=== PATIENT | female | born 1965 | race Two or more races ===

== ENCOUNTER 2024-11-17 20:05 | Observation (INO) | payer MEDICAID, SELFPAY ==
--- NOTE | 2024-11-14 06:16 | EKG_ITS ---
[facility] Test Date: 2024-11-14 Pat Name: LAWANDA GABRIEL Department: Room: - Gender: Female Orchid Hand: MADHU : 1965 Requested By: Jayson Torres Order Number: [id number] Reading MD: Jayson Torres Measurements Intervals Pansey Rate: 57 P: 7 GA: 129 QRS: -25 QRSD: 89 T: -15 QT: 359 QTc: 351 Interpretive Statements SINUS BRADYCARDIA LOW QRS VOLTAGE IN PRECORDIAL LEADS [QRS DEFLECTION < 1.0 mV IN CHEST LEADS] POSSIBLE ANTERIOR MYOCARDIAL INFARCTION , OF INDETERMINATE AGE [30 ms Q WAVE IN V3/V4, OR R < 0.2 mV IN V4] No previous ECG available for comparison /store/S0/[id number].pdf
[2024-11-14 08:29] VITALS: BMI 29.2
[2024-11-14 09:04] LABS: Collection Type, Urine Clean Catch
[2024-11-14 09:51] LABS: Basophils # (Auto) 0.1 Thou/mm3 (0.0-0.2); Basophils % (Auto) 1 % (0-2.5); Eosinophils # (Auto) 0.1 Thou/mm3 (0.0-0.5); Eosinophils % (Auto) 1 % (0-10); Hematocrit 43.5 % (36.0-46.0); Hemoglobin 15.2 g/dL (12.0-16.0); Immature Granulocytes % (Auto) 0 % (0-0); Immature Granulocytes Auto 0.02 Thou/mm3 (0.00-0.00); Lymphocytes # (Auto) 1.9 Thou/mm3 (1.0-4.8); Lymphocytes % (Auto) 24 % (10-50); Mean Corpuscular HGB Conc 34.9 g/dl (31.0-37.0); Mean Corpuscular Hemoglobin 33.2 pg (25.0-35.0); Mean Corpuscular Volume 95 fL (80-100); Monocytes # (Auto) 0.5 Thou/mm3 (0.0-0.8); Monocytes % (Auto) 7 % (0-12); Neutrophils # (Auto) 5.1 Thou/mm3 (1.8-7.7); Neutrophils % (Auto) 66 % (37-80); Nucleated Red Blood Cell % 0 /100 WBC (0); Platelet Count 142 Thou/mm3 (140-440); RDW Standard Deviation 47.5 fL (36.4-46.3); Red Blood Count 4.58 Miln/mm3 (4.00-5.20); White Blood Count 7.7 Thou/mm3 (3.6-11.0)
[2024-11-14 09:58] LABS: Bilirubin,Urine Negative (Negative); Blood,Urine Negative (Negative); Clarity,Urine Clear (Clear/Hazy); Color,Urine Lt-Yellow (Lt Yel-Yel); Glucose, Urine 4+ (Negative); Ketones,Urine Negative (Negative); Leukocyte Esterase,Urine Negative (Negative); Nitrite,Urine Negative (Negative); Protein,Urine Negative (Neg - Trace); RBC,Urine 2 /hpf (0-3); Specific Gravity,Urine 1.011 (1.001-1.035); Squamous Epithelial Cell,Urine 1 /hpf (0-5); Urobilinogen,Urine Negative mg/dL (0.0-1.0); WBC,Urine 2 /hpf (0-5)
[2024-11-14 09:59] LABS: Partial Thromboplastin Time 22.9 Seconds (22.0-36.0)
[2024-11-14 10:05] LABS: Alanine Aminotransferase 28 U/L (10-49); Albumin, Serum 4.7 gm/dL (3.5-5.0); Albumin/Globulin Ratio 2.1 (1.2-2.2); Alkaline Phosphatase 79 U/L (46-116); Anion Gap 9 (7-16); Aspartate Amino Transferase 24 U/L (0-34); BUN/Creatinine Ratio 17 Ratio (12-20); Blood Urea Nitrogen 12 mg/dL (9-23); Calcium 9.9 mg/dL (8.3-10.6); Calcium (Corrected) 9.9 mg/dL (8.5-10.1); Carbon Dioxide 30.2 mMol/L (20.0-31.0); Chloride 102 mMol/L (98-107); Creatinine (Component) 0.7 mg/dL (0.6-1.3); Estimated Creatinine Clearance 76.3 mL/min (>60); Globulin 2.2 gm/dL (2.3-3.5); Glucose 122 mg/dL (74-106); Osmolality,Calculated 281 (275-295); Potassium 3.9 mMol/L (3.4-5.1); Sodium 141 mMol/L (136-145); Total Protein 6.9 gm/dL (5.7-8.2); eGFR > 60 See Note
[2024-11-17] VITALS (18 sets, daily range): BP systolic 136–181; BP diastolic 65–102; PULSE 63–78; RESP 12–20; TEMP 36.1–37.1; O2SAT 95–100; BMI 29.5; BMI 30.5
--- NOTE | 2024-11-17 15:37 | PD.SUROPNT ---
Date of Procedure 11/17/24 Pre Op Diagnosis Incarcerated ventral hernia and umbilical hernia Post Op Diagnosis Same. Omental adhesions. Procedure Repair of 11.5 cm ventral incisional incarcerated hernia and umbilical hernia with implantation of a Ventrio ST oval 14.5 cm patch on 11/17/2024 Lysis of omental adhesions. Findings This patient had a previous abdominal surgery and had a large recurrent incarcerated ventral hernia. This was located in the suprapubic region. She also had an umbilical hernia that required repair. Both the defects were combined in repaired as a 1 defect. There were adhesions of the omentum on the inside and lysis of adhesions was carried out. Procedure Description The patient is interviewed in the preoperative area and the procedure was discussed in detail with the patient including expectation of outcomes. Explanation of the technique and complications. An informed consent was obtained. Anesthesia consent was obtained by the anesthesiologist. The hernia sites were marked on the surface. Patient is brought back to the operating room. The patient is positioned supine on the operating table and general anesthesia is administered in a satisfactory manner. The chest abdomen and thigh genitalia regions are prepped and draped in usual manner. IV antibiotics were given and a timeout procedure was carried out. Intraoperative ultrasound is carried out with 7.5 MHz linear digital ultrasound probe. The hernia defects were identified and marked on the surface to assess the extent of the procedure. Then the local anesthesia quarter percent Marcaine with epinephrine is used. Vertical incision is made through the previous incision. Dissection is carried out in the subcutaneous tissue to the fascia and the 2 different defects are identified. Gentle dissection is carried out and hernia sacs are isolated. The sac is opened and was removed as specimen. The incarcerated hernia was reduced by incising the ring. There were significantly dense adhesions of the omentum within the hernia sac and surrounding subcutaneous tissue. The contents are reduced. Hemostasis is achieved. There is an umbilical hernia and the midline incision is carried through the umbilical hernia. Both the hernia defects were converted into 1 defect. Dissection is carried out circumferentially from the peritoneal side to make sure there were no adhesions and bowel attached to the anterior abdominal wall. Lysis of adhesions is carried out on the peritoneal side releasing the omental adhesions circumferentially to about 10 cm around. All the hernias defects were incorporated into one defect. The defect is measured. It is about 11.5 cm in length and 6 cm in the width. The laps and instrument counts are obtained they are correct x2 and then I selected a Ventrio ST oval patch to be placed in the underlay position. The patch is oval and measures about 14.5 cm in maximum length. The patch is secured in the preperitoneal space and attached to the fascia in circumferential manner by interrupted O' Ethibond stitches. Laps and instrument counts were correct ?2. The defect in the fascia is closed over the patch. Patch was previously irrigated with gentamicin solution. Hemostasis is achieved. Operative field is thoroughly irrigated with saline solution and the subcutaneous tissues approximated with 3-0 chromic interrupted suture. The skin is approximated by 4-0 Monocryl subcuticular stitches. The Steri-Strips are applied. Sterile dressing and abdominal binder is applied. Patient tolerated the procedure very well complications none. Patient is transferred to recovery room in a satisfactory condition. Anesthesia GETA Drains None. Implants Ventrio ST oval patch measuring 14.5 cm in length. Pathology / specimen Other (Hernia sac) Estimated Blood Loss 10 Condition Stable Disposition PACU Surgeon Jayson Torres MD Surgical Staff Operation Date: 11/17/24 13:45 Case Staff Anesthesiologist: Silver Oconnell RN First Assistant: Shanel Wallers JODIE health plan specialist [employer] engineering technologist with student
--- NOTE | 2024-11-17 15:50 | SUR.PHASEI ---
pt received from OR in recovery bay 7. pt obtunded, breathing unlabored on oxymask 8l, oral airway in place. v/s stable. pt dressing to abd cdi, abd binder in place. report received from Dr. Oconnell and Kevin FELICIANO.
[2024-11-17] MEDS: fentaNYL CIT INJ 50 mCg/ML AMP 2ML 25 MCG IVP ×6 (16:06→17:30)
[2024-11-17] MEDS: HYDROmorphone INJ 2 MG/ML VIAL 0.3 MG IVP ×2 (16:50→17:07)
[2024-11-17] MEDS: MEPERIDINE INJ 50 MG/ML VIAL 25 MG IVP (17:12)
[2024-11-17] MEDS: RINGERS LACTATED 1000 ML 1,000 ML 60 ML IV (17:43)
[2024-11-17] MEDS: HYDROmorphone 1 MG/ML PCA SYRINGE 30ML PCA (17:51)
[2024-11-17] MEDS: KETOROLAC INJ 30 MG/ML VIAL IVP ×2 (18:18→23:17)
--- NOTE | 2024-11-17 19:50 | SUR.PHASEII ---
pt awake and alert, breathing unlabored on room air. v/s stable. pt dressing to abd cdi. abd binder place. report called to Daina RN. pt will be transferred to room at this time.
[2024-11-17] MEDS: ONDANSETRON INJ 2 MG/ML INJ 2 ML 4 MG IVP (21:19)
[2024-11-17] MEDS: ACETAMINOPHEN IVPB 1,000 MG/100 ML VIAL 250 MG IV (23:18)
[2024-11-18] VITALS (7 sets, daily range): BP systolic 118–147; BP diastolic 58–75; PULSE 62–70; RESP 13–20; TEMP 36.1–37.2; O2SAT 96–99
[2024-11-18] MEDS: ONDANSETRON INJ 2 MG/ML INJ 2 ML 4 MG IVP ×2 (04:54→11:42)
[2024-11-18] MEDS: KETOROLAC INJ 30 MG/ML VIAL IVP ×2 (06:32→11:44)
[2024-11-18] MEDS: ACETAMINOPHEN IVPB 1,000 MG/100 ML VIAL 250 MG IV ×2 (06:35→11:42)
[2024-11-18] MEDS: RINGERS LACTATED 1000 ML 1,000 ML 60 ML IV (09:31)
--- NOTE | 2024-11-18 13:58 | PD.SURPROG ---
Documentation for date of: 11/18/24 Subjective Subjective Brief History: Postop day 1 this patient was admitted yesterday for pain control after incarcerated hernia repair. She is doing much better today she has only minimal pain and she does not need IV narcotics she does have some nausea that is Zofran will take care of that at this time she is on Dilaudid that is giving her nausea. She will be discharged home to be followed in my office within 7 to 10 days Exam Vital Signs Temp Pulse Resp BP Pulse Ox O2 Del Method O2 Flow Rate 98.9 F 62 17 118/58 L 97 Nasal Cannula 1 11/18/24 12:00 11/18/24 12:00 11/18/24 12:00 11/18/24 12:00 11/18/24 12:11/18/24 12:11/18/24 12:00 Narrative Exam Abdomen is soft and nontender nondistended. Incision is dry and dressing is clean. Patient is wearing a abdominal binder. Cardiopulmonary examination is normal. Assessment & Plan Diagnosis (1) Incarcerated ventral hernia: Status: Acute (2) Umbilical hernia with obstruction: Status: Acute (3) Postoperative pain: Status: Acute Plan Discharge patient home. Procedures Procedure Date 11/17/24 Procedures Repair of 11.5 cm ventral incisional incarcerated hernia and umbilical hernia with implantation of a Ventrio ST oval 14.5 cm patch on 11/17/2024 Lysis of omental adhesions.
--- NOTE | 2024-11-18 14:01 | ESDS_ITS ---
Planned Discharge Date 11/18/24 DS: Providers Provider Date of admission: 11/17/24 20:05 Primary care physician: Lily Hawley PA-C Admitting Provider: Jayson Torres MD Attending Provider on Admission: Jayson Torres MD Attending Provider on DC: Jayson Torres MD Discharging Provider: Jayson Torres MD Diagnosis Discharge Diagnosis (1) Incarcerated ventral hernia: Status: Acute (2) Umbilical hernia with obstruction: Status: Acute (3) Postoperative pain: Status: Acute Problem List Completed Was Problem List Reviewed/Reconciled?: Yes Hospital Course This patient underwent repair of incarcerated ventral hernia and umbilical hernia postoperatively she was admitted for pain control as she could not be discharged home. On postop day 1 she is tolerating the pain better she was on IV narcotics that are not needed anymore she is being discharged home on oral pain medication and oral nausea medication if she has any. She will be followed up in the office within 7 days. Condition is markedly improved. Exam Vital Signs Temp Pulse Resp BP Pulse Ox O2 Del Method O2 Flow Rate 98.9 F 62 17 118/58 L 97 Nasal Cannula 1 11/18/24 12:00 11/18/24 12:00 11/18/24 12:00 11/18/24 12:00 11/18/24 12:11/18/24 12:00 11/18/24 12:00 Narrative Exam Abdomen is soft and nontender patient is wearing abdominal binder dressing is dry and intact cardiopulmonary examination is normal extremity unremarkable. Discharge Plan Plan Patient Disposition: HOME (Self Care) Disposition Comment: Follow-up in the office in 2 weeks Prescriptions/Referrals Prescriptions/Med Rec: New hydrocodone-acetaminophen 10-325 mg tablet 1 tab PO Q6H MDD 4 PRN (Reason: pain) Qty: 20 0RF ondansetron 8 mg tablet,disintegrating 8 mg PO Q8H PRN (Reason: nausea and vomiting) Qty: 20 0RF Continued dapagliflozin propanediol [Farxiga] 5 mg tablet 5 mg PO QAM hydrocodone-acetaminophen 5-325 mg tablet 1 tab PO Q4H PRN (Reason: pain) metformin 1,000 mg tablet 1,000 mg PO DAILY Patient Comments: TAKE 1 TABLET BY MOUTH ONCE DAILY Ozempic 2 mg/dose (8 mg/3 mL) pen injector 2 mg subcut QWEEK hydrochlorothiazide 12.5 mg capsule 12.5 mg PO DAILY Patient Comments: TAKE 1 CAPSULE BY MOUTH ONCE DAILY lisinopril 2.5 mg tablet 2.5 mg PO DAILY Patient Comments: TAKE 1 TABLET BY MOUTH ONCE DAILY insulin glargine [Basaglar KwikPen U-100 Insulin] 100 unit/mL (3 mL) insulin pen 40 unit subcut QPM atorvastatin 20 mg tablet 20 mg PO DAILY Referrals: Lily Hawley PA-C [Primary Care Provider] - Patient/Caregiver Discharge Instructions Other Discharge Activity Instructions:: Wear abdominal binder for 4 months. Keep incision dressing dry for 48 hours. May take shower after that but keep incision dry. Follow-up in the office in 2 weeks. Other Discharge Diet Instructions: Advance diet to regular diet as tolerated Education Materials: Anesthesia: General Anesthesia, Surgery Anesthesia After, Hernia Repair Open Dc, Having Hernia Surgery: Patch Repair, Preventing Surgical Site Infections, [facility] SDC Instructions- Faroese Print Language: Faroese Activity Restrictions/Additional Instructions: Wear abdominal binder for 4 months. Keep incision dressing dry for 48 hours. May take shower after that but keep incision dry. Follow-up in the office in 2 weeks. Advance diet to regular diet as tolerated Stand Alone Forms: [employer] Info., Patient Portal Info Letter Discharge Order Discharge Orders: Discharge (Routine); Ordered 11/18/24 Ordered By: Jayson Torres Procedures Procedure Date 11/17/24 Procedures Repair of 11.5 cm ventral incisional incarcerated hernia and umbilical hernia with implantation of a Ventrio ST oval 14.5 cm patch on 11/17/2024 Lysis of omental adhesions.
--- NOTE | 2024-11-18 14:38 | PC.SS ---
SS met with patient regarding her d/c plan. Pt is alert/oriented. Pt was admitted for Repair of Inc Her [id number]. Pt confirmed demographic and contact information is correct on facesheet. Pt resides with her daughters. Pt ambulates independently without assistance or DME. Pt is ok with all ADLs. Patient?s pharmacy [facility] choice is [facility] in [place]. Pt named her daughter, Domonique Aguilar medical decision maker if she is unable. Patient?s choice is to return home upon d/c. Pt states she is diabetic, has glucometer, and test strips. Pt states she uses insulin injections 1 X at night for her diabetes. Pt is currently on 1 liter of O2. Pt does not utilize O2 at home. D/C plan: Return home Next of Kin: Domonique Aguilar, daughter, phone# [phone] PCP: Lily Hawley from [facility] Address: Correct on facesheet
[2024-11-18] MEDS: DiphenhydrAMINE 25 MG CAPSULE PO (15:37)
== END 2024-11-18 16:21 | disposition home or self-care (01) ==
LOC: S2EX 20:19 → S3SX 20:28
PROVIDERS: Admitting Provider Specialist; PCP Physician Assistant; Referring Provider Specialist; Visit Provider Specialist
PROC: (CPT 49618; principal; 2024-11-17 13:30)
DX: K42.0 Umbilical hernia with obstruction, without gangrene (principal); K43.6 Other and unspecified ventral hernia with obstruction, without gangrene; G89.18 Other acute postprocedural pain; K66.0 Peritoneal adhesions (postprocedural) (postinfection); Z01.810 Encounter for preprocedural cardiovascular examination
CPT/HCPCS: 49618; 36415; 80053; 81001; 85025; 85730; 93005; 96361; 96365; 96375; 96376; A4217; A4649; C1781; G0378; J0131; J0690; J1100; J1171; J1580; J1885; J2175; J2250; J2405; J2704; J3010; J3490; J7030; J7120; A9270; J0665

== ENCOUNTER 2024-12-01 22:42 | Inpatient (IN) | payer MEDICAID, SELFPAY ==
[2024-12-01 22:44] VITALS: BMI 29.2
--- NOTE | 2024-12-01 22:55 | PD.EDABDPN ---
ED Abdominal Pain RME/HPI General Chief Complaint: Abdominal Pain Stated complaint: PAIN TO SURGICAL SITE, HERNIA SURGERY 2WKS AGO Time seen by provider: 12/01/24 23:29 Arrival date/time: 12/01/24 22:42 RME / HPI RME / HPI narrative: This section includes all my notes and documentations, including HPI, PE, and ED course. Evaristo Hoang MD HPI: 59yo female with history of DM, HTN, HLD, recent umbilical hernia repair [address] Torres here with worsening and severe abdominal pain and fever and vomiting today. No other complaints. ROS: All negative except as documented in HPI. Physical Exam: General: Alert and oriented. In severe pain. Fever noted. Eyes: Conjunctivae and lids clear. ENT: No nasal congestion. Neck: Supple. Heart: RRR. Lungs: No respiratory distress. Good air movement. No rhonchi, wheezing, rales. Abdomen: Severe diffuse tenderness, difficult to localize. Decreased bowel sounds. Incision appears clean and dry and intact. Skin: Warm and dry. Neuro: Alert and oriented X 3. I reviewed all diagnostic test results. My interpretation of the chest x-ray is NAD. My review of the CT abdomen pelvis report is postsurgical abscess. Blood and urine tests remarkable for WBC 16.4. At this point, diagnoses include postsurgical abscess with fever. Treatment here included Dilaudid, Tylenol, NS, Zosyn, Toradol, Solumedrol, and Zofran. Some improvement noted. I discussed the case with the patient's surgeon, Dr. Torres, and our hospitalist. About the presentation and exam and diagnostics and treatments here. And need of further care in the hospital. Will accept the patient. Evaristo Hoang MD Related Data Home Medications ?Medication ?Instructions ?Recorded ?Confirmed atorvastatin 20 mg tablet 20 mg PO DAILY 11/14/24 11/17/24 dapagliflozin propanediol 5 mg 5 mg PO QAM 11/14/24 11/17/24 tablet (Farxiga) hydrochlorothiazide 12.5 mg capsule 12.5 mg PO DAILY 11/14/24 11/17/24 insulin glargine 100 unit/mL (3 40 unit subcut QPM 11/14/24 11/17/24 mL) subcutaneous pen (Basaglar KwikPen U-100 Insulin) lisinopril 2.5 mg tablet 2.5 mg PO DAILY 11/14/24 11/17/24 metformin 1,000 mg tablet 1,000 mg PO DAILY 11/14/24 11/17/24 semaglutide 2 mg/dose (8 mg/3 mL) 2 mg subcut QWEEK 11/14/24 11/14/24 subcutaneous pen injector (Ozempic) Previous Rx's ?Medication ?Instructions ?Recorded hydrocodone 10 mg-acetaminophen 1 tab PO Q6H PRN pain #20 tabs 11/17/24 325 mg tablet ondansetron 8 mg disintegrating 8 mg PO Q8H PRN nausea and 11/18/24 tablet vomiting #20 tabs Allergies Allergy/AdvReac Type Severity Reaction Status Date / Time No Known Allergies Allergy Verified 12/01/24 22:44 Review of Systems Review of Systems Systems Reviewed: All systems reviewed, normal except as documented Past Medical History Past Medical History NEUROLOGIC: Negative Neurological Disorders or Seizures CARDIAC: Positive Cardiac Disorders, Hypercholesterolemia and Hypertension; Negative Congestive Heart Failure RESPIRATORY: Negative Chronic Obstructive Pulmonary Disease (COPD) GASTROINTESTINAL: Negative Gastrointestinal Disorders or Hepatitis GENITOURINARY: Positive Genitourinary Disorders and Kidney Stones; Negative Renal Disease REPRODUCTIVE: Positive Previous Pregnancies MUSCULOSKELETAL: Positive Musculoskeletal Disorders and Arthritis ENDOCRINE: Positive Endocrine Disorders and Diabetes Mellitus Type 2; Negative Diabetes Mellitus Type 1 HEMATOLOGIC: Negative Blood Disorders OTHER HISTORY: Positive Hospitalization (surgery), Shingles and Cancer; Negative Autoimmune Disease, Blood Transfusions, Blood Transfusion Reaction or Anesthesia Reactions Family History FAMILY HISTORY: Positive Family Cardiac Disorders and Family Surgery; Negative Family Psychiatric Problems, Family Respiratory Disorders, Family Gastrointestinal Problems, Family Cancer or Family Anesthesia Reaction Surgical History SURGICAL: Positive Nose Surgery (skin cancer removed), Abdominal Surgery, Hysterectomy and Section (x3) Social History SMOKING STATUS: Never smoker ED Exam Narrative Physical exam: As noted in HPI. Course Course Course Narrative: 2304: Sepsis alert initiated. Orders made at this time are congruent with ED Adult Sepsis Order List. Re-evaluation is to be completed. CXR is ordered for determining the etiology of fever 0017: NS IVF infused. 0047: Sepsis reassessment performed consisting of lab review, vitals, physical exam including auscultation of heart, lungs, and visual evaluation of capillary refills, mucosal membranes and extremities. Quality Measures Possible source: GI tract/intra-abdominal Blood cultures ordered: yes Antibiotic ordered: Yes Pertinent labs: 12/01/24 23:10 Lactic Acid 1.7 mMol/L (0.4-2.0) Procalcitonin 0.23 ng/ml (0.0-0.49) sepsis Orders Category Date Time Status COVID-19 Screening Questionnaire NOW Care 12/02/24 02:[address] Screening NOW Care 12/01/24 23:05 Active Decision to Admit X1 Care 12/02/24 02:15 Completed Saline [Insert IV] NOW Care 12/01/24 23:03 Active Consult to General Surgery Stat Cons 12/02/24 01:[address] abdomen pelvis w con Stat Exams 12/01/24 23:05 Taken XR chest 1V portable Stat Exams 12/01/24 23:05 Completed Amylase Stat Lab 12/01/24 23:10 Completed Bilirubin,Direct Stat Lab 12/01/24 23:10 Completed Blood Culture (Lab) Stat Lab 12/01/24 23:10 Received CBC Stat Lab 12/01/24 23:10 Completed CMP [Comprehensive Metabolic Panel] Stat Lab 12/01/24 23:10 Completed CRP [C-Reactive Protein] Stat Lab 12/01/24 23:10 Completed ESR [Sed Rate (ESR)] Stat Lab 12/01/24 23:10 Completed Lactate (Lactic Acid) Stat Lab 12/01/24 23:10 Completed Lipase Stat Lab 12/01/24 23:10 Completed Magnesium Stat Lab 12/01/24 23:10 Completed PT [Prothrombin Time with INR] Stat Lab 12/01/24 23:10 Completed PTT [Partial Thromboplastin Time] Stat Lab 12/01/24 23:10 Completed Procalcitonin Stat Lab 12/01/24 23:10 Completed UA, C/S IF [Urinalysis, C/S if Indicated] Stat Lab 12/02/24 00:58 Completed Acetaminophen Ivpb [Ofirmev Inj] Med 12/01/24 23:03 Discontinued 1,000 mg in 100 ml IV X1 HYDROmorphone INJ [Dilaudid Inj] Med 12/01/24 23:03 Discontinued 2 mg IVP X1 ONE Ketorolac Inj [Toradol Inj] Med 12/01/24 23:03 Discontinued 30 mg IVP X1 ONE MethylPREDNISolone.* [SoluMEDROL Inj] Med 12/01/24 23:12 Discontinued 125 mg IVP X1 ONE Ondansetron Inj [Zofran Inj] Med 12/01/24 23:03 Discontinued 4 mg IVP X1 ONE Piper/Tazo 3.375 gm Premix [Zosyn] Med 12/01/24 23:03 Discontinued 3.375 gm in 50 ml IV X1 Sodium Chloride 0.9% 1000 ml [Ns] 1,000 ml Med 12/01/24 23:03 Discontinued IV 999 mls/hr Sodium Chloride 0.9% 1000 ml [Ns] 1,000 ml Med 12/01/24 23:05 Discontinued IV 999 mls/hr Vital Signs Vital signs: Vital Signs Temperature 101.1 F H 12/01/24 22:56 Pulse Rate 91 12/01/24 22:56 Respiratory Rate 16 12/01/24 22:56 Blood Pressure 111/71 12/01/24 22:56 Pulse Oximetry (%) 96 12/01/24 22:56 Oxygen Delivery Method Room Air 12/01/24 22:56 Abdominal Pain MDM MDM Narrative MDM Narrative:: 59yo female with history of DM, HTN, HLD, recent umbilical hernia repair [address] Torres here with worsening and severe abdominal pain and fever and vomiting today. No other complaints. Patient data External records reviewed:: [facility] previous records (Per chart review, patient has no previous ED visits.) Clinical information provided by:: patient Social determinants that could affect healthcare access:: none Patient has the following chronic illnesses:: DM, HTN, HLD How is presenting disease/condition affected by chronic disease/condition?: uneffected by Evaluation data The following diagnostics were reviewed and interpreted by me:: lab results and radiology exam(s) Lab and/or radiology exams considered but not ordered:: none Interpretation Summary: I reviewed all diagnostic test results. My interpretation of the chest x-ray is NAD. My review of the CT abdomen pelvis report is postsurgical abscess. Blood and urine tests remarkable for WBC 16.4. Medications / Prescriptions Medications or Prescriptions considered but not ordered:: none Medication administrations:: Medication Administration History Discontinued Medications Hydromorphone HCl (Hydromorphone Inj 2 Mg/Ml Vial) 2 mg IVP X1 ONE Stop: 12/01/24 23:04 Last Admin: 12/01/24 23:29 Dose: 2 mg Documented By: DT Acetaminophen (Ofirmev Inj) 1,000 mg in 100 mls @ 250 mls/hr IV X1 ONE Stop: 12/01/24 23:26 Last Infusion: 12/01/24 23:51 Dose: Infused Documented By: Admin: 12/01/24 23:27 Dose: 250 mls/hr Documented By: DT Sodium Chloride (Ns) 1,000 mls @ 999 mls/hr IV .Q1H1M ONE Stop: 12/02/24 00:03 Last Infusion: 12/02/24 00:17 Dose: Infused Documented By: Admin: 12/01/24 23:16 Dose: 999 mls/hr Documented By: DT Piperacillin/Tazobactam/Dextrose (Zosyn) 3.375 gm in 50 mls @ 100 mls/hr IV X1 ONE Stop: 12/01/24 23:32 Last Infusion: 12/01/24 23:59 Dose: Infused Documented By: Admin: 12/01/24 23:29 Dose: 100 mls/hr Documented By: DT Sodium Chloride (Ns) 1,000 mls @ 999 mls/hr IV .Q1H1M ONE Stop: 12/02/24 00:05 Last Infusion: 12/02/24 00:18 Dose: Infused Documented By: Admin: 12/01/24 23:17 Dose: 999 mls/hr Documented By: DT Ketorolac Tromethamine (Ketorolac Inj 30 Mg/Ml Vial) 30 mg IVP X1 ONE Stop: 12/01/24 23:04 Last Admin: 12/01/24 23:25 Dose: 30 mg Documented By: DT Methylprednisolone Sodium Succinate (Methylprednisolone Sod Succ 62.5 Mg/Ml 2ml Vial) 125 mg IVP X1 ONE Stop: 12/01/24 23:13 Last Admin: 12/01/24 23:25 Dose: 125 mg Documented By: DT Ondansetron HCl (Ondansetron Inj 2 Mg/Ml Inj 2 Ml) 4 mg IVP X1 ONE; Protocol Stop: 12/01/24 23:04 Last Admin: 12/01/24 23:24 Dose: 4 mg Documented By: DT Dilaudid, Tylenol, NS, Zosyn, Toradol, Solumedrol, Zofran Consultations Consultation(s) initiated? (list below): Yes Consultation #1 (Physician, Specialty, Details): I discussed the case with the patient's surgeon, Dr. Torres, and our hospitalist. About the presentation and exam and diagnostics and treatments here. And need of further care in the hospital. Will accept the patient. Diagnosis Differential diagnosis abdominal pain: acute appendicitis, calculus of kidney, diverticulitis, endometriosis, gastroenteritis, pancreatitis, small bowel obstruction and other (Postsurgical abscess) Most likely diagnosis given after review of the tests above:: Postsurgical abscess with fever Admission Indicated Admission indicated?: indicated Explain why admission is indicated or not indicated:: Postsurgical abscess with fever Admission Request Was there a request for admission?: Yes Admission Attestation Admission request attestation: Discussed case with hospitalist service regarding admission. Discussed patients ED course, exam findings, labs, and radiology results. The Hospitalist [agrees] to accept the patient for admission. Disposition Plan Disposition Plan: Admit Discharge Plan Plan Patient Disposition: Admit Acute Care w/in Hospital Prescriptions/Referrals Prescriptions/Med Rec: No Action dapagliflozin propanediol [Farxiga] 5 mg tablet 5 mg PO QAM metformin 1,000 mg tablet 1,000 mg PO DAILY Patient Comments: TAKE 1 TABLET BY MOUTH ONCE DAILY Ozempic 2 mg/dose (8 mg/3 mL) pen injector 2 mg subcut QWEEK hydrochlorothiazide 12.5 mg capsule 12.5 mg PO DAILY Patient Comments: TAKE 1 CAPSULE BY MOUTH ONCE DAILY lisinopril 2.5 mg tablet 2.5 mg PO DAILY Patient Comments: TAKE 1 TABLET BY MOUTH ONCE DAILY insulin glargine [Basaglar KwikPen U-100 Insulin] 100 unit/mL (3 mL) insulin pen 40 unit subcut QPM atorvastatin 20 mg tablet 20 mg PO DAILY hydrocodone-acetaminophen 10-325 mg tablet 1 tab PO Q6H MDD 4 PRN (Reason: pain) Qty: 20 0RF ondansetron 8 mg tablet,disintegrating 8 mg PO Q8H PRN (Reason: nausea and vomiting) Qty: 20 0RF Referrals: No Primary/Family,Physician [Primary Care Provider] - In 1 week Problem List Clinical Impression: Postoperative abscess Patient/Caregiver Discharge Instructions Print Language: Hebrew Stand Alone Forms: [employer] Info., Patient Portal Info Letter
[2024-12-01 22:56] VITALS: BP 111/71; PULSE 91; RESP 16; TEMP 38.4; O2SAT 96
--- NOTE | 2024-12-01 23:05 | XR_ITS ---
Examination: AP chest single view TECHNIQUE: AP portable semiupright chest single view Date and time: December 01, 2024 11:20 PM INDICATIONS: Status post hernia surgery 2 weeks ago with shortness of breath today FINDINGS: Normal heart size No lobar pneumonia No pulmonary edema Mild osteopenia IMPRESSION: No pneumonia or pulmonary edema
--- NOTE | 2024-12-01 23:05 | XR_ITS ---
Examination: CT abdomen with intravenous contrast CT pelvis with intravenous contrast 2-D coronal reconstructions 2-D sagittal reconstructions Date and time of exam:December 02, 2024 at 12:18 AM INDICATIONS: Hernia surgery 2 weeks ago with pain at the surgical site. CTDI: vol (mGy) 7.32 DLP: (mGycm) 396 Technique: Multiple axial sections of the abdomen and pelvis have been obtained. 64 slice high-resolution scanner used. 3 mm axial sections have been obtained, post intravenous injection of 60 cc Isovue 370 2-D sagittal, coronal reconstructions obtained. Low dose protocols were performed. One or more of the following dose reduction techniques were used; automated exposure control, adjustment of the mA and/or KV according to patient size, use of iterative reconstruction technique. Findings: 13 mm pulmonary nodule right lower lobe image 18 No focal liver or splenic lesion Absent gallbladder, common bile duct 12 mm No pancreatic or adrenal mass No hydronephrosis or renal calculi Aorta normal size Postoperative fluid poorly defined in the anterior abdomen, axial image 1:30 12/09/1935 that measures 6 cm in transverse dimension and 13 mm in thickness Also minimal fluid collection external to the anterior lower abdominal wall image 141 measuring 17 x 23 mm Mild to moderate free fluid in the pelvis Urinary bladder intact Impression : Poorly defined fluid collection in the lower anterior abdomen which may be postop Minimal fluid collection external to the lower anterior abdominal wall as above. Mild to moderate free fluid in the pelvis Common bile duct 12 mm, clinical correlation advised
[2024-12-01] MEDS: SODIUM CHLORIDE 0.9% 1000 ML 1,000 ML 999 ML IV ×2 (23:16→23:17)
[2024-12-01 23:21] LABS: Lactate (Lactic Acid) 1.7 mMol/L (0.4-2.0)
[2024-12-01] MEDS: ONDANSETRON INJ 2 MG/ML INJ 2 ML 4 MG IVP (23:24)
[2024-12-01 23:25] VITALS: TEMP 38.4
[2024-12-01 23:25] LABS: Basophils # (Auto) 0.1 Thou/mm3 (0.0-0.2); Basophils % (Auto) 1 % (0-2.5); Eosinophils # (Auto) 0.4 Thou/mm3 (0.0-0.5); Eosinophils % (Auto) 2 % (0-10); Hematocrit 44.3 % (36.0-46.0); Immature Granulocytes % (Auto) 0 % (0-0); Immature Granulocytes Auto 0.05 Thou/mm3 (0.00-0.00); Lymphocytes # (Auto) 2.3 Thou/mm3 (1.0-4.8); Lymphocytes % (Auto) 14 % (10-50); Mean Corpuscular HGB Conc 36.1 g/dl (31.0-37.0); Mean Corpuscular Hemoglobin 32.9 pg (25.0-35.0); Mean Corpuscular Volume 91 fL (80-100); Monocytes # (Auto) 0.9 Thou/mm3 (0.0-0.8); Monocytes % (Auto) 6 % (0-12); Neutrophils # (Auto) 12.7 Thou/mm3 (1.8-7.7); Neutrophils % (Auto) 77 % (37-80); Nucleated Red Blood Cell % 0 /100 WBC (0); Platelet Count 165 Thou/mm3 (140-440); RDW Standard Deviation 41.1 fL (36.4-46.3); Red Blood Count 4.86 Miln/mm3 (4.00-5.20); White Blood Count 16.4 Thou/mm3 (3.6-11.0)
[2024-12-01] MEDS: KETOROLAC INJ 30 MG/ML VIAL IVP (23:25)
[2024-12-01] MEDS: MethylPREDNISolone SOD SUCC 62.5 MG/ML 2ML VIAL 125 MG IVP (23:25)
[2024-12-01] MEDS: ACETAMINOPHEN IVPB 1,000 MG/100 ML VIAL 250 MG IV (23:27)
[2024-12-01] MEDS: PIPER/TAZO 3.375 GM PREMIX 3.375 GM/50 ML BAG IV (23:29)
[2024-12-01] MEDS: HYDROmorphone INJ 2 MG/ML VIAL IVP (23:29)
[2024-12-01 23:36] VITALS: BP 156/76; PULSE 85; RESP 14; O2SAT 99
[2024-12-01 23:43] LABS: Partial Thromboplastin Time 22.6 Seconds (22.0-36.0); Prothrombin Time 10.9 Seconds (9.0-12.2)
[2024-12-01 23:54] LABS: Alanine Aminotransferase 26 U/L (10-49); Albumin, Serum 4.6 gm/dL (3.5-5.0); Alkaline Phosphatase 92 U/L (46-116); Amylase 83 U/L (30-118); Anion Gap 8 (7-16); Aspartate Amino Transferase 19 U/L (0-34); BUN/Creatinine Ratio 24 Ratio (12-20); Bilirubin,Direct 0.3 mg/dL (0.0-0.3); Blood Urea Nitrogen 17 mg/dL (9-23); C-Reactive Protein 0.9 mg/dL (0.0-0.9); Calcium 9.5 mg/dL (8.3-10.6); Calcium (Corrected) 9.5 mg/dL (8.5-10.1); Carbon Dioxide 25.8 mMol/L (20.0-31.0); Chloride 102 mMol/L (98-107); Creatinine (Component) 0.7 mg/dL (0.6-1.3); Estimated Creatinine Clearance 73.1 mL/min (>60); Globulin 2.3 gm/dL (2.3-3.5); Glucose 210 mg/dL (74-106); Lipase 53 U/L (12-53); Magnesium 1.6 mg/dL (1.6-2.6); Osmolality,Calculated 279 (275-295); Potassium 3.9 mMol/L (3.4-5.1); Procalcitonin 0.23 ng/ml (0.0-0.49); Sodium 136 mMol/L (136-145); Total Protein 6.9 gm/dL (5.7-8.2); eGFR > 60 See Note
[2024-12-02] VITALS (10 sets, daily range): BP systolic 114–156; BP diastolic 55–85; PULSE 63–79; RESP 14–97; TEMP 36.2–37; O2SAT 93–99; BMI 30.3
[2024-12-02 00:25] LABS: Sed Rate (ESR) 21 mm/hr (0-30)
[2024-12-02 01:10] LABS: Collection Type, Urine Clean Catch
[2024-12-02 01:19] LABS: Bilirubin,Urine Negative (Negative); Blood,Urine Negative (Negative); Clarity,Urine Clear (Clear/Hazy); Color,Urine Colorless (Lt Yel-Yel); Culture Indicated,Urine Not Indicated; Glucose, Urine 4+ (Negative); Ketones,Urine Trace (Negative); Leukocyte Esterase,Urine Negative (Negative); Nitrite,Urine Negative (Negative); Protein,Urine Negative (Neg - Trace); RBC,Urine 2 /hpf (0-3); Specific Gravity,Urine 1.041 (1.001-1.035); Squamous Epithelial Cell,Urine < 1 /hpf (0-5); Urobilinogen,Urine Negative mg/dL (0.0-1.0); WBC,Urine 2 /hpf (0-5)
--- NOTE | 2024-12-02 02:18 | PRELIM_ITS ---
CT scan of the abdomen and pelvis with intravenous contrast (axial sections with sagittal and coronal reformats) December 02, 2024 at 0015 hours Clinical History: Abdominal pain after surgery and fever. Comparison: None. Findings: Right lower lobe lung nodule measuring 1.4 cm. Status post cholecystectomy. There is mild intra and extrahepatic biliary ductal dilatation. The liver, pancreas, spleen, kidneys and adrenals are unremarkable. Diverticulosis of the colon. No evidence of bowel obstruction. The appendix is within normal limits. There is no mesenteric or retroperitoneal adenopathy. The urinary bladder is unremarkable. There is no free air. A small amount of complex free fluid is seen in the pelvis. There is questionable developing collection in the anterior abdomen (axial image 138 of 257), no completely walled with yet measuring 6.7 x 1.4 cm. The osseous structures are unremarkable. Impression: 1. Probable developing collection in the anterior abdomen. Surgical consult should be considered. 2. Small amount of complex free fluid in the pelvis, consider peritonitis in the differential diagnosis. 3. Mild intra and extrahepatic biliary ductal dilatation in status postcholecystectomy, possibly functional. If choledocholithiasis is clinically suspected, consider correlation with MRCP. 4. Right lower lobe lung nodule, further evaluation for characterization is recommended. Differential diagnosis includes metastasis and primary lung cancer. Discussion Details: Results verbally communicated to : Dr. Hoang at 01:41 AM 12/02/2024 Report Electronically Signed By: Go Kumar 12/02/2024 2:18:18 AM [EST]
--- NOTE | 2024-12-02 03:04 | ESHP_ITS ---
<Statement entered by Neil Reid MD - 12/02/24 06:23> I Neil Reid MD reviewed the note and agree with the resident's assessment & plan with exceptions as below. I have personally reviewed labs, imaging, home meds/prior records, examined the patient, formulated and discussed management plan with the IM team. A 59-year-old female with history of DM, HTN and recent hernia repair on 11/17/2024 presented to ED with abdominal pain at the incision site along with nausea and vomiting. On presentation noted to be febrile, have leukocytosis and CT abdomen/pelvis did reveal surgical site abscess. Admitted for surgical site abscess, consult general surgery for wound evaluation and intervention as appropriate. Meanwhile empirically treat with Zosyn and vancomycin, continue IV fluid resuscitation, keep n.p.o. until surgical evaluation. Documentation for date of: 12/02/24 HPI History of Present Illness Chief complaint: abdominal pain History of present illness: 59-year-old female with past medical history hypertension, hyperlipidemia, and DM2 was admitted to the hospital 12/02/2024 after coming to the ED with complaints of abdominal pain at surgical incision site. Patient recently had a ventral incarcerated hernia and umbilical hernia repair on 11/17/2024 and was discharged on 11/18/2024. Patient states that since surgery she has been having abdominal pain and she went to see her surgeon who stated that her abdominal pain was likely due to the surgery. She also mentioned that last week she started having fevers on and off with increased abdominal pain as well. She did not notice any discharge coming from the surgical incision site and has been compliant with follow-up visits with her surgeon. She states that today her abdominal pain became too unbearable therefore she decided to come to the ED. She also stated that she has been having some visual hallucinations which started on the day prior to admission. She also stated she has been having some nausea and vomiting, but otherwise does not have any other symptoms including chest pain, shortness of breath, dizziness, changes in bowel movement, or dysuria. ED course: Initially came in febrile and normotensive. Initial labs were relevant for leukocytosis, and lactic acid and inflammatory markers were normal. Initial imaging included chest x-ray which did not show any active disease at this time and abdomen/pelvis CT with showed on preliminary report collection in the anterior abdomen as well as small amount of complex free fluid in the pelvis and right lower lung nodule. ED physician discussed the case with surgery who stated to admit the patient for further workup. PMH: As above Surgical Hx: Cholecystectomy, hysterectomy, C-sections, incarcerated ventral hernia and umbilical hernia repair Allergies: NKDA Social Hx: Denies any smoking, alcohol, drugs Medications: Metformin, lisinopril, atorvastatin Review of Systems Review of Systems Systems Reviewed: All systems reviewed, normal except as documented Past Medical History Past Medical History NEUROLOGIC: Negative Neurological Disorders or Seizures CARDIAC: Positive Cardiac Disorders, Hypercholesterolemia and Hypertension; Negative Congestive Heart Failure RESPIRATORY: Negative Chronic Obstructive Pulmonary Disease (COPD) GASTROINTESTINAL: Negative Gastrointestinal Disorders or Hepatitis GENITOURINARY: Positive Genitourinary Disorders and Kidney Stones; Negative Renal Disease REPRODUCTIVE: Positive Previous Pregnancies MUSCULOSKELETAL: Positive Musculoskeletal Disorders and Arthritis ENDOCRINE: Positive Endocrine Disorders and Diabetes Mellitus Type 2; Negative Diabetes Mellitus Type 1 HEMATOLOGIC: Negative Blood Disorders OTHER HISTORY: Positive Hospitalization (surgery), Shingles and Cancer; Negative Autoimmune Disease, Blood Transfusions, Blood Transfusion Reaction or Anesthesia Reactions Family History FAMILY HISTORY: Positive Family Cardiac Disorders and Family Surgery; Negative Family Psychiatric Problems, Family Respiratory Disorders, Family Gastrointestinal Problems, Family Cancer or Family Anesthesia Reaction Surgical History SURGICAL: Positive Nose Surgery (skin cancer removed), Abdominal Surgery, Hysterectomy and Section (x3) Social History SMOKING STATUS: Never smoker Exam Vital Signs Temp Pulse Resp BP Pulse Ox O2 Del Method 101.1 F H 85 14 156/76 H 99 Room Air 12/01/24 23:25 12/01/24 23:36 12/01/24 23:36 12/01/24 23:36 12/01/24 23:36 12/01/24 23:36 Narrative Exam General: A/O x3, mild distress likely 2/2 pain Eyes: PERRL, EOMI. Anicteric, vision grossly intact. Ears: No ear pain, no ear discharge, Hearing grossly intact. Nose: No nasal discharge. Mouth/Throat: Moist mucous membranes, no redness, no lesions. Neck: Neck supple, non-tender, no cervical lymphadenopathy. Lungs: Clear RACIEL to auscultation and percussion, No accessory muscle use. Cardio: Normal S1/S2, regular rhythm, no murmurs, no JVD or carotid bruits. Abdomen: Soft, generalized tenderness worst around incisional site, no palpable masses, peristalsis present, no guarding or rebound, no discharge from incisional site, but foul odor. Abdominal binder in place. Extremities: Symmetrical, no significant deformities, no peripheral edema , non-tender, peripheral pulses presents. Skin: No rashes, no lesions, warm to touch. Neuro: No focal neurological deficits. motor and sensory intact Psych: Cooperative, appropriate mood and effect. Results: Labs 12/01/24 23:10 12/01/24 23:10 Labs: Short CBC 12/01/24 Range/Units 23:10 WBC 16.4 H (3.6-11.0) Thou/mm3 Hgb 16.0 (12.0-16.0) g/dL Hct 44.3 (36.0-46.0) % Plt Count 165 (140-440) Thou/mm3 BMP 12/01/24 23:10 Sodium 136 Potassium 3.9 Chloride 102 Carbon Dioxide 25.8 BUN 17 Creatinine 0.7 Glucose 210 H Calcium 9.5 Liver Function 12/01/24 Range/Units 23:10 Total Bilirubin 1.0 (0.3-1.2) mg/dL Direct Bilirubin 0.3 (0.0-0.3) mg/dL AST 19 (0-34) U/L ALT 26 (10-49) U/L Alkaline Phosphatase 92 (46-116) U/L Albumin 4.6 (3.5-5.0) gm/dL Urine 12/02/24 Range/Units 00:58 Urine Color Colorless A (Lt Yel-Yel) Urine Clarity Clear (Clear/Hazy) Urine pH 6.0 (5.0-7.0) Ur Specific [place] 1.041 H (1.001-1.035) Urine Protein Negative (Neg - Trace) Urine Glucose (UA) 4+ A (Negative) Quality Measures Quality Measures sepsis Current suspected stage: ruled out Possible source: GI tract/intra- abdominal Blood cultures ordered: yes Antibiotic ordered: Yes Medications Home Medications and Allergies Home Medications ?Medication ?Instructions ?Recorded ?Confirmed ?Type atorvastatin 20 mg tablet 20 mg PO DAILY 11/14/2403/05 History dapagliflozin propanediol 5 mg 5 mg PO QAM 11/14/24 History tablet (Farxiga) hydrochlorothiazide 12.5 mg capsule 12.5 mg PO DAILY 0 11/14/24 11/17/24 History insulin glargine 100 unit/mL (3 40 unit subcut QPM 12/0311/17/24 History mL) subcutaneous pen (Basaglar KwikPen U-100 Insulin) lisinopril 2.5 mg tablet 2.5 mg PO DAILY 11/14/2403/05 History metformin 1,000 mg tablet 1,000 mg PO DAILY 11/14/24 0 11/17/24 History semaglutide 2 mg/dose (8 mg/3 mL) 2 mg subcut QWEEK 11/14/24 History subcutaneous pen injector (Ozempic) Allergies Allergy/AdvReac Type Severity Reaction Status Date / Time No Known Allergies Allergy Verified 12/01/24 22:44 Visit Medications Acetaminophen (Acetaminophen 325 Mg Tablet) 650 mg PO Q6H PRN PRN Reason: Fever >100.4 Stop: 01/01/25 02:58 Hydrocodone Bitart/Acetaminophen (Hydrocodone/Apap 5/325 Tablet) 1 tab PO Q4HR PRN PRN Reason: PAIN SCALE 4-6 (Moderate Stop: 12/07/24 02:58 Dextrose (Dextrose 50%-Water Inj 50 Ml Syringe) 25 ml IV Q15MIN PRN PRN Reason: BG 50-70 responsive npo pt Stop: 01/01/25 02:58 Dextrose (Dextrose 50%-Water Inj 50 Ml Syringe) 50 ml IV Q15MIN PRN PRN Reason: BG <50 OR BG <70 & pt unresponsive Stop: 01/01/25 02:58 Glucagon (Glucagon Inj 1 Mg Vial) 1 mg IM Q15MIN PRN PRN Reason: BG <70, and no IV access Hydromorphone HCl (Hydromorphone Inj 2 Mg/Ml Vial) 0.25 mg IVP Q4H PRN PRN Reason: BREAKTHROUGH PAIN Stop: 12/07/24 02:58 Sodium Chloride (Ns) 1,000 mls @ 75 mls/hr IV .[id number] [place] Stop: 12/02/24 16:19 Insulin Human Lispro (Insulin Lispro (Admelog) 1 Unit/0.01 Ml Unit) 0 unit SC Q6HR [place]; Protocol Stop: 01/01/25 05:59 Morphine Sulfate (Morphine Sulf Inj 10 Mg/Ml Vial) 1 mg IVP Q2H PRN PRN Reason: PAIN SCALE 7-10 (Severe Stop: 12/07/24 02:58 Ondansetron HCl (Ondansetron Inj 2 Mg/Ml Inj 2 Ml) 4 mg IVP Q6H PRN; Protocol PRN Reason: NAUSEA OR VOMITING Stop: 01/01/25 02:58 Discontinued Medications Hydromorphone HCl (Hydromorphone Inj 2 Mg/Ml Vial) 2 mg IVP X1 ONE Stop: 12/01/24 23:04 Last Admin: 12/01/24 23:29 Dose: 2 mg Acetaminophen (Ofirmev Inj) 1,000 mg in 100 mls @ 250 mls/hr IV X1 ONE Stop: 12/01/24 23:26 Last Infusion: 12/01/24 23:51 Dose: Infused Sodium Chloride (Ns) 1,000 mls @ 999 mls/hr IV .Q1H1M ONE Stop: 12/02/24 00:03 Last Infusion: 12/02/24 00:17 Dose: Infused Piperacillin/Tazobactam/Dextrose (Zosyn) 3.375 gm in 50 mls @ 100 mls/hr IV X1 ONE Stop: 12/01/24 23:32 Last Infusion: 12/01/24 23:59 Dose: Infused Sodium Chloride (Ns) 1,000 mls @ 999 mls/hr IV .Q1H1M ONE Stop: 12/02/24 00:05 Last Infusion: 12/02/24 00:18 Dose: Infused Ketorolac Tromethamine (Ketorolac Inj 30 Mg/Ml Vial) 30 mg IVP X1 ONE Stop: 12/01/24 23:04 Last Admin: 12/01/24 23:25 Dose: 30 mg Methylprednisolone Sodium Succinate (Methylprednisolone Sod Succ 62.5 Mg/Ml 2ml Vial) 125 mg IVP X1 ONE Stop: 12/01/24 23:13 Last Admin: 12/01/24 23:25 Dose: 125 mg Ondansetron HCl (Ondansetron Inj 2 Mg/Ml Inj 2 Ml) 4 mg IVP X1 ONE; Protocol Stop: 12/01/24 23:04 Last Admin: 12/01/24 23:24 Dose: 4 mg Assessment & Plan Plan 59-year-old female with past medical history hypertension, hyperlipidemia, and DM2 was admitted to the hospital 12/02/2024 for postsurgical abscess. #Postsurgical abscess #Peritonitis? # Leukocytosis #Hx of recent incarcerated parenteral hernia and umbilical hernia repair Patient came in with complaints of abdominal pain since she had surgery on 11/17/2024 which has been increasing and today became unbearable along with fevers. Abdomen/pelvis CT showed on preliminary report collection in the anterior abdomen as well as small amount of complex free fluid in the pelvis and right lower lung nodule. Inflammatory markers and lactic acids are negative Plan: IV fluids IV Zosyn and Vancomycin Repeat lactic acid for morning labs Pain medications including [place], morphine, and Dilaudid for breakthrough pain. N.p.o. for now in the setting of possible surgical intervention General surgery consulted, appreciate recommendations Chronic diseases: #Hx of DM2 #Hx of hypertension #Hx hyperlipidemia ISS and hypoglycemia protocol ordered A1c ordered Lipid panel ordered for a.m. labs Pending medication reconciliation to start home medications. Disposition: Patient admitted to med surg for post surgical abscess. Diet: NPO GI prophylaxis: not indicated DVT prophylaxis: SCDs in setting of possible surgery Code: Full Case disclosed with Attending Dr. Franklin Green PGY1 Disclaimer: Even though this this note was dictated by speech recognition and even though it was carefully revised there may still be minor errors in personalized living manager due to voice recognition software.
[2024-12-02] MEDS: ONDANSETRON INJ 2 MG/ML INJ 2 ML 4 MG IVP (03:16)
[2024-12-02] MEDS: MORPHINE SULF INJ 10 MG/ML VIAL IVP (03:16)
[2024-12-02] MEDS: SODIUM CHLORIDE 0.9% 1000 ML 1,000 ML 75 ML IV (03:17)
[2024-12-02] MEDS: VANCOMYCIN/NS 1 GM IVPB 200 ML IV (03:35)
--- NOTE | 2024-12-02 04:21 | PC.NURSE ---
JODIE Galindo recieved telephone report from JODIE Rodriguez in ED.
[2024-12-02 04:34] LABS: Basophils # (Auto) 0.1 Thou/mm3 (0.0-0.2); Basophils % (Auto) 0 % (0-2.5); Eosinophils % (Auto) 0 % (0-10); Hematocrit 40.6 % (36.0-46.0); Hemoglobin 14.2 g/dL (12.0-16.0); Immature Granulocytes % (Auto) 1 % (0-0); Immature Granulocytes Auto 0.09 Thou/mm3 (0.00-0.00); Lymphocytes # (Auto) 0.8 Thou/mm3 (1.0-4.8); Lymphocytes % (Auto) 5 % (10-50); Mean Corpuscular Hemoglobin 32.9 pg (25.0-35.0); Mean Corpuscular Volume 94 fL (80-100); Monocytes # (Auto) 0.5 Thou/mm3 (0.0-0.8); Monocytes % (Auto) 3 % (0-12); Neutrophils # (Auto) 14.5 Thou/mm3 (1.8-7.7); Neutrophils % (Auto) 91 % (37-80); Nucleated Red Blood Cell % 0 /100 WBC (0); Platelet Count 132 Thou/mm3 (140-440); RDW Standard Deviation 41.7 fL (36.4-46.3); Red Blood Count 4.31 Miln/mm3 (4.00-5.20); White Blood Count 15.9 Thou/mm3 (3.6-11.0)
[2024-12-02 04:47] LABS: Glucose Estimated Average 137 mg/dL (80-131); Hemoglobin A1C 6.4 % Hgb (4.8-6.0)
[2024-12-02 04:53] LABS: Alanine Aminotransferase 41 U/L (10-49); Albumin, Serum 3.9 gm/dL (3.5-5.0); Alkaline Phosphatase 75 U/L (46-116); Anion Gap 8 (7-16); Aspartate Amino Transferase 44 U/L (0-34); BUN/Creatinine Ratio 20 Ratio (12-20); Blood Urea Nitrogen 12 mg/dL (9-23); Calcium 8.3 mg/dL (8.3-10.6); Calcium (Corrected) 8.4 mg/dL (8.5-10.1); Carbon Dioxide 24.8 mMol/L (20.0-31.0); Cardiac Risk Estimate 2.7 RATIO (3.7-5.6); Chloride 106 mMol/L (98-107); Cholesterol 117 mg/dL (132-200); Creatinine (Component) 0.6 mg/dL (0.6-1.3); Estimated Creatinine Clearance 85.3 mL/min (>60); Glucose 222 mg/dL (74-106); HDL Cholesterol 43 mg/dL (40-60); LDL Cholesterol,Calculated 47 mg/dL (0-130); Magnesium 1.6 mg/dL (1.6-2.6); Osmolality,Calculated 284 (275-295); Sodium 139 mMol/L (136-145); Total Protein 5.9 gm/dL (5.7-8.2); Triglycerides 137 mg/dL (30-150); eGFR > 60 See Note
--- NOTE | 2024-12-02 05:02 | PC.NURSE ---
Patient will ask family member to bring medications to the hospital.
[2024-12-02] MEDS: PIPER/TAZO 3.375 GM PREMIX 3.375 GM/50 ML BAG IV ×3 (05:49→21:36)
[2024-12-02] MEDS: INSULIN LISPRO (AdmeLOG) 1 UNIT/0.01 ML UNIT SC ×4 (05:51→20:49)
[2024-12-02] MEDS: Magnesium Sulfate 4 GM Ivpb 4 GM/50 ML BAG IV (08:43)
[2024-12-02] MEDS: Lisinopril 2.5 MG TABLET PO (08:43)
[2024-12-02] MEDS: CALCIUM CARBONATE 600 MG TABLET PO (08:43)
--- NOTE | 2024-12-02 08:43 | PC.SS ---
Patient Zuleika Aguilar is a 59 Year old female admitted for Post Surgical Abscess. SS met with patient regarding her d/c plan. Patient appeared alert/oriented. Patient was able to confirm demographic and contact information. Patient reports she resides with her daughters. Pt ambulates independently without assistance or DME. Patient is able to complete all ADLs. Patient?s pharmacy of choice is [facility] in [place]. Pt named her daughter, Domonique Aguilar medical decision maker. Patient?s choice is to return home upon discharge. Patient's daughter will provide transportation. D/C plan: Return home Next of Kin: Domonique Aguilar, daughter, phone# [phone] PCP: Lily Hawley from [facility]
[2024-12-02] MEDS: hydroCHLOROthiazide 12.5 MG CAPSULE PO (08:44)
[2024-12-02] MEDS: INSULIN GLARGINE (Lantus) 5 UNIT/0.05 ML (PER 5 UNITS) 10 UNIT SC (08:46)
[2024-12-02] MEDS: VANCOMYCIN/NS 750 MG IVPB 750 MG/150 ML BAG 120 MG IV ×2 (10:38→21:43)
[2024-12-02] MEDS: HYDROcodone/APAP 5/325 TABLET 1 TAB PO (10:50)
--- NOTE | 2024-12-02 14:56 | ESPR_ITS ---
Documentation for date of: 12/02/24 Subjective Subjective Interval history: Patient examined at bedside. Still has abdominal pain at surgical site but improved since admission with medication. She has been able to have normal bowel movements since the surgery but difficult to strain. Endorses normal appetite. No fever since admission, leukocytosis 16, CMP unremarkable. Resumed 30 units glargine at bedtime for blood sugar control. Continue IV antibiotics for possible surgical site infection. Surgery will come and assess patient for any need of further intervention. Exam Vital Signs Temp Pulse Resp BP Pulse Ox O2 Del Method 97.6 F 66 17 117/55 L 94 L Room Air 12/02/24 12:00 12/02/24 12:00 12/02/24 12:00 12/02/24 12:12/02/24 12:12/02/24 12:00 Narrative Exam General: Middle age female, mild distress from pain, cooperative HEENT: NCAT, No JVD noted. Mucosa moist. Pupils are equal and reactive to light bilaterally Cardiovascular: Normal S1 and S2. Regular rate and rhythm. Respiratory: Lungs are clear to auscultation bilaterally. No wheezing or crackles heard. Abdomen: Soft, tender around surgery site, no drainage, not distended, normal bowel sounds. Had abdominal binder on. Skin: Warm to touch, dry, no rashes noted Musculoskeletal: No gross injuries. Able to move all 4 extremities. No pitting edema Neuro: Alert and oriented x3. No focal neuro deficits. Psych: Normal affect and mood Objective Labs 12/03/24 05:00 12/03/24 05:00 Labs: Laboratory Results - last 24 hr 12/01/24 12/02/24 12/02/24 23:10 00:58 04:15 WBC 16.4 H 15.9 H RBC 4.86 4.31 Hgb 16.0 14.2 Hct 44.3 40.6 MCV 91 94 MCH 32.9 32.9 MCHC 36.1 35.0 RDW Std Deviation 41.1 41.7 Plt Count 165 132 L D Neut % (Auto) 77 91 H Lymph % (Auto) 14 5 L [place] % (Auto) 6 3 Eos % (Auto) 2 0 Baso % (Auto) 1 0 Neut # (Auto) 12.7 H 14.5 H Lymph # (Auto) 2.3 0.8 L [place] # (Auto) 0.9 H 0.5 Eos # (Auto) 0.4 0.0 Baso # (Auto) 0.1 0.1 Immature Gran # (Auto) 0.05 H 0.09 H Absolute Nucleated RBC 0.00 0.00 Immature Gran % 0 1 H Nucleated RBC % 0 0 ESR 21 PT 10.9 INR 1.0 APTT 22.6 Sodium 136 139 Potassium 3.9 4.0 Chloride 102 106 Carbon Dioxide 25.8 24.8 Anion Gap 8 8 BUN 17 12 Creatinine 0.7 0.6 Estim Creat Clear Calc 73.1 85.3 eGFR > 60 > 60 BUN/Creatinine Ratio 24 H 20 Glucose [address] Glu mg/dL 137 H Hemoglobin A1c 6.4 H Calculated Osmolality 279 284 Lactic Acid 1.7 1.0 Calcium 9.5 8.3 Corrected Calcium 9.5 8.4 L Magnesium 1.6 1.6 Total Bilirubin 1.0 1.0 Direct Bilirubin 0.3 AST 19 44 H ALT 26 41 Alkaline Phosphatase 92 75 C-Reactive Prot, Quant 0.9 Total Protein 6.9 5.9 Albumin 4.6 3.9 D Globulin 2.3 2.0 L Albumin/Globulin Ratio 2.0 2.0 Triglycerides 137 Cholesterol 117 L LDL Cholesterol, Calc 47 HDL Cholesterol 43 Cholesterol/HDL Ratio 2.7 L Amylase 83 Lipase 53 Procalcitonin 0.23 Ur Collection Type Clean Catch Urine Color Colorless A Urine Clarity Clear Urine pH 6.0 Ur Specific [place] 1.041 H Urine Protein Negative Urine Glucose (UA) 4+ A Urine Ketones Trace Urine Blood Negative Urine Nitrite Negative Urine Bilirubin Negative Urine Urobilinogen (Auto) Negative Ur Leukocyte Esterase Negative Urine RBC 2 Urine WBC 2 Ur Squamous Epith Cells < 1 Urine Bacteria None Ur Culture Indicated? Not Indicated Quality Measures Quality Measures sepsis Current suspected stage: ruled out Possible source: GI tract/intra- abdominal Blood cultures ordered: yes Antibiotic ordered: Yes Assessment & Plan Assessment Current Active Medications: Generic Name Dose Route Start Last Admin Trade Name Freq PRN Reason Stop Dose Admin Acetaminophen 650 mg 12/02/24 02:59 Acetaminophen 325 Mg Tablet PO 01/01/25 02:58 Q6H PRN Fever >100.4 Hydrocodone Bitart/Acetaminophen 1 tab 12/02/24 02:59 12/02/24 10:50 Hydrocodone/Apap 5/325 Tablet PO 12/07/24 02:58 1 tab Q4HR PRN Administration PAIN SCALE 4-6 (Moderate Dextrose 25 ml 12/02/24 02:59 Dextrose 50%-Water Inj 50 Ml Syringe IV 01/01/25 02:58 Q15MIN PRN BG 50-70 responsive npo pt Dextrose 50 ml 12/02/24 02:59 Dextrose 50%-Water Inj 50 Ml Syringe IV 01/01/25 02:58 Q15MIN PRN BG <50 OR BG <70 & pt unresponsive Glucagon 1 mg 12/02/24 02:59 Glucagon Inj 1 Mg Vial IM Q15MIN PRN BG <70, and no IV access Hydrochlorothiazide 12.5 mg 12/02/24 09:00 12/02/24 08:44 Hydrochlorothiazide 12.5 Mg Capsule PO 01/01/25 08:59 12.5 mg QDAY [place] Administration Hydromorphone HCl 0.25 mg 12/02/24 02:59 Hydromorphone Inj 2 Mg/Ml Vial IVP 12/07/24 02:58 Q4H PRN BREAKTHROUGH PAIN Protocol Sodium Chloride 1,000 mls @ 75 mls/hr 12/02/24 03:00 12/02/24 03:17 Ns IV 12/02/24 16:19 75 mls/hr .[id number] CATALINA Administration Piperacillin/Tazobactam/Dextrose 3.375 gm in 50 mls @ 12.5 mls/hr 12/02/24 06:00 12/02/24 13:53 Zosyn IV 12/09/24 05:59 12.5 mls/hr Q8HR CATALINA Administration Protocol Vancomycin/Sodium Chloride 750 mg in 150 mls @ 120 mls/hr 12/02/24 10:00 12/02/24 10:38 Vancomycin/Ns 750 Mg Ivpb IV 12/09/24 09:59 120 mls/hr BID@1000,2200 CATALINA Administration Insulin Glargine 30 unit 12/02/24 21:00 Insulin Glargine (Lantus) 5 Unit/0.05 Ml (Per 5 Units) SC 01/01/25 20:59 HS CATALINA Insulin Human Lispro 0 unit 12/02/24 06:00 12/02/24 11:34 Insulin Lispro (Admelog) 1 Unit/0.01 Ml Unit SC 01/01/25 05:59 1 unit Q6HR CATALINA Administration Protocol Lisinopril 2.5 mg 12/02/24 09:00 12/02/24 08:43 Lisinopril 2.5 Mg Tablet PO 01/01/25 08:59 2.5 mg QDAY [place] Administration Morphine Sulfate 1 mg 12/02/24 02:59 12/02/24 03:16 Morphine Sulf Inj 10 Mg/Ml Vial IVP 12/07/24 02:58 1 mg Q2H PRN Administration PAIN SCALE 7-10 (Severe Ondansetron HCl 4 mg 12/02/24 02:59 12/02/24 03:16 Ondansetron Inj 2 Mg/Ml Inj 2 Ml IVP 01/01/25 02:58 4 mg Q6H PRN Administration NAUSEA OR VOMITING Protocol Pharmacy Consult 1 each 12/02/24 09:00 Vancomycin Pharmacy To Dose 1 Each Each IV 01/01/25 08:59 QDAY PRN CONSULT Plan Zuleika Aguilar is 59-year-old female with past medical history hypertension, hyperlipidemia, and DM2 was admitted to the hospital 12/02/2024 for surgical site infection. She recently had repair of incarcerated hernia completed on 11/14/[address] Torres. There were no major complications during the surgery. She however is endorsing worsening abdominal pain. Will admit for pain management, IV antibiotics and evaluation of surgical site. #Possible surgical site infection following abdominal surgery #s/p repair of incarcerated parenteral hernia and umbilical hernia Patient came in with complaints of abdominal pain since she had surgery on 11/17/2024 which has been increasing and today became unbearable along with fevers. In ED temp 101.1, WBC 16. Inflammatory markers and lactic acids are negative. Abdomen/pelvis CT showed on preliminary report fluid collection in the anterior abdomen as well as small amount of complex free fluid in the pelvis and right lower lung nodule. -encourage oral intake -IV Zosyn 3.375g TID (12/02- -IV Vancomycin (12/02- ? [place] 5 PO q4hr PRN ?IV Dilaudid 0.25 mg q4hr PRN (for breakthrough pain) ?IV morphine 1 mg q2hr PRN -General surgery consulted, appreciate recommendations--will evaluate for need of further intervention. #Insulin dependent type 2 diabetes On admission initial glucose 210. A1c on this admission 6.4, no previous numbers. Patient takes Farxiga 5 mg daily, 40 units of glargine HS, 1000 mg metformin for diabetes at home. -Held home medications -Bedside blood glucose checks ACHS -Insulin lispro sliding scale -Carb consistent low diet #Hypertension #Hyperlipidemia ?Resumed hydrochlorothiazide 12.5 mg daily ? Resumed lisinopril 2.5 mg daily #Pulmonary nodule As evidenced on CT scan chest. 13 mm nodule in right lower lobe. ?Follow-up outpatient for repeat imaging Disposition: med surg for possible surgical site infection Diet: low carb DVT prophylaxis: SCDs in setting of possible surgery Code: Full The patient's management plan was discussed with my attending physician Dr. Ma. Vernell Ga, PGY-1 Attending Provider Attestation/Addendum I have examined the patient, reviewed labs and imaging findings, discussed the case with the resident(s), and reviewed entered orders. I agree with the plan of care as outlined in this note, with these additional summaries/recommendations: Patient seen at bedside. No acute overnight events. She reports her pain is controlled currently. Patient underwent surgical repair of incarcerated ventral hernia and umbilical hernia on 11/17/2024. Patient reports her symptoms initially improved although then she started to feel worse. She endorsed fevers and pain around the incision site prompting her to come to the emergency room. On admission patient was found to have leukocytosis 16.4. CT of abdomen/pelvis revealed poorly defined fluid collection in the lower anterior abdomen and mild free fluid in the pelvis. Patient diagnosed with surgical site infection. Unclear if patient has abscess at this time and may just be postoperative fluid changes. General surgery consulted and appreciate recommendations if any intervention is needed at this time. Continue broad-spectrum IV antibiotics and follow-up blood culture results when available. Continue pain management. Continue basal and bolus insulin for diabetes mellitus type 2. Target blood sugar of 140-180 while hospitalized. Continue home antihypertensives and diabetic diet. Patient updated on the plan and in agreement. All questions answered to satisfaction. Please see residents note for additional details and management. Dr. Anil MD
[2024-12-02] MEDS: INSULIN GLARGINE (Lantus) 5 UNIT/0.05 ML (PER 5 UNITS) 30 UNIT SC (20:48)
[2024-12-03] VITALS (8 sets, daily range): BP systolic 116–138; BP diastolic 54–77; PULSE 54–65; RESP 14–99; TEMP 36.1–36.7; O2SAT 97–99
[2024-12-03] MEDS: HYDROcodone/APAP 5/325 TABLET 1 TAB PO ×2 (00:04→18:03)
[2024-12-03] MEDS: PIPER/TAZO 3.375 GM PREMIX 3.375 GM/50 ML BAG IV ×3 (05:10→22:43)
[2024-12-03 05:59] LABS: Basophils # (Auto) 0.1 Thou/mm3 (0.0-0.2); Basophils % (Auto) 1 % (0-2.5); Eosinophils # (Auto) 0.2 Thou/mm3 (0.0-0.5); Eosinophils % (Auto) 2 % (0-10); Hematocrit 36.6 % (36.0-46.0); Immature Granulocytes % (Auto) 1 % (0-0); Lymphocytes # (Auto) 2.2 Thou/mm3 (1.0-4.8); Lymphocytes % (Auto) 17 % (10-50); Mean Corpuscular HGB Conc 35.5 g/dl (31.0-37.0); Mean Corpuscular Hemoglobin 33.1 pg (25.0-35.0); Mean Corpuscular Volume 93 fL (80-100); Monocytes # (Auto) 0.8 Thou/mm3 (0.0-0.8); Monocytes % (Auto) 6 % (0-12); Neutrophils # (Auto) 9.7 Thou/mm3 (1.8-7.7); Neutrophils % (Auto) 75 % (37-80); Nucleated Red Blood Cell % 0 /100 WBC (0); Platelet Count 116 Thou/mm3 (140-440); RDW Standard Deviation 43.1 fL (36.4-46.3); Red Blood Count 3.93 Miln/mm3 (4.00-5.20); White Blood Count 13.1 Thou/mm3 (3.6-11.0)
[2024-12-03 06:31] LABS: Alanine Aminotransferase 23 U/L (10-49); Albumin, Serum 3.6 gm/dL (3.5-5.0); Albumin/Globulin Ratio 1.7 (1.2-2.2); Alkaline Phosphatase 67 U/L (46-116); Anion Gap 7 (7-16); Aspartate Amino Transferase 21 U/L (0-34); BUN/Creatinine Ratio 20 Ratio (12-20); Bilirubin,Total 0.6 mg/dL (0.3-1.2); Blood Urea Nitrogen 10 mg/dL (9-23); Calcium 8.7 mg/dL (8.3-10.6); Carbon Dioxide 24.6 mMol/L (20.0-31.0); Chloride 109 mMol/L (98-107); Creatinine (Component) 0.5 mg/dL (0.6-1.3); Estimated Creatinine Clearance 104.3 mL/min (>60); Globulin 2.1 gm/dL (2.3-3.5); Glucose 154 mg/dL (74-106); Osmolality,Calculated 283 (275-295); Sodium 141 mMol/L (136-145); Total Protein 5.7 gm/dL (5.7-8.2); eGFR > 60 See Note
--- NOTE | 2024-12-03 09:45 | PC.SS ---
SS follow up note; Pain management, Surgery rec's pending, Patient will discharge home when medically cleared.
[2024-12-03 10:03] LABS: Vancomycin,Trough 6.5 mcg/mL (5.0-10.0)
[2024-12-03] MEDS: VANCOMYCIN/NS 1 GM IVPB 200 ML IV ×2 (10:45→22:44)
[2024-12-03] MEDS: bisacodyL 5 MG TABEC PO (10:45)
[2024-12-03] MEDS: INSULIN LISPRO (AdmeLOG) 1 UNIT/0.01 ML UNIT SC ×3 (11:43→20:35)
--- NOTE | 2024-12-03 19:43 | PD.RESPRO ---
Documentation for date of: 12/03/24 Subjective Subjective Interval history: Patient examined at bedside. Abdominal pain has improved. Endorses passing gas but has not had a bowel movement. Started her on lactulose 10 mg as needed. Endorses good appetite, was able to eat full breakfast. Examined surgical incision site, appears intact, no bleeding, no drainage, no erythema. Some tenderness to touch. Surgery Dr. Torres examined patient, no plans for surgery at this time. No fever since admission, WBC C downtrending to 13, CMP unremarkable. Blood sugars well-controlled, vitals are stable Continue IV antibiotics for possible surgical site infection. Blood cultures are pending. Exam Vital Signs Temp Pulse Resp BP Pulse Ox O2 Del Method 97.2 F 54 L 17 134/67 H 97 Room Air 12/03/24 16:00 12/03/24 16:12/03/24 16:00 12/03/24 16:00 12/03/24 16:12/03/24 16:00 Narrative Exam General: Middle age female, mild distress from pain, cooperative HEENT: NCAT, No JVD noted. Mucosa moist. Pupils are equal and reactive to light bilaterally Cardiovascular: Normal S1 and S2. Regular rate and rhythm. Respiratory: Lungs are clear to auscultation bilaterally. No wheezing or crackles heard. Abdomen: Soft, tender around surgery site, no drainage, not distended, normal bowel sounds. Surgical site appears intact, no bleeding, no drainage, no erythema. Some tenderness to touch. Skin: Warm to touch, dry, no rashes noted Musculoskeletal: No gross injuries. Able to move all 4 extremities. No pitting edema Neuro: Alert and oriented x3. No focal neuro deficits. Psych: Normal affect and mood Objective Labs 12/04/24 06:30 12/04/24 04:51 Labs: Laboratory Results - last 24 hr 12/03/24 12/03/24 05:00 09:05 WBC 13.1 H RBC 3.93 L Hgb 13.0 Hct 36.6 MCV 93 MCH 33.1 MCHC 35.5 RDW Std Deviation 43.1 Plt Count 116 L Neut % (Auto) 75 Lymph % (Auto) 17 [place] % (Auto) 6 Eos % (Auto) 2 Baso % (Auto) 1 Neut # (Auto) 9.7 H Lymph # (Auto) 2.2 [place] # (Auto) 0.8 Eos # (Auto) 0.2 Baso # (Auto) 0.1 Immature Gran # (Auto) 0.10 H Absolute Nucleated RBC 0.00 Immature Gran % 1 H Nucleated RBC % 0 Sodium 141 Potassium 4.0 Chloride 109 H Carbon Dioxide 24.6 Anion Gap 7 BUN 10 Creatinine 0.5 L Estim Creat Clear Calc 104.3 eGFR > 60 BUN/Creatinine Ratio 20 Glucose 154 H D Calculated Osmolality 283 Calcium 8.7 Corrected Calcium 9.0 Magnesium 2.0 Total Bilirubin 0.6 AST 21 ALT 23 Alkaline Phosphatase 67 Total Protein 5.7 Albumin 3.6 Globulin 2.1 L Albumin/Globulin Ratio 1.7 Vancomycin Trough 6.5 Quality Measures Quality Measures sepsis Current suspected stage: ruled out Possible source: GI tract/intra-abdominal Blood cultures ordered: yes Antibiotic ordered: Yes Assessment & Plan Assessment Current Active Medications: Generic Name Dose Route Start Last Admin Trade Name Freq PRN Reason Stop Dose Admin Acetaminophen 650 mg 12/02/24 02:59 Acetaminophen 325 Mg Tablet PO 01/01/25 02:58 Q6H PRN Fever >100.4 Hydrocodone Bitart/Acetaminophen 1 tab 12/02/24 02:59 12/03/24 18:03 Hydrocodone/Apap 5/325 Tablet PO 12/07/24 02:58 1 tab Q4HR PRN Administration PAIN SCALE 4-6 (Moderate Bisacodyl 5 mg 12/03/24 10:36 12/03/24 10:45 Bisacodyl 5 Mg [place] PO 01/02/25 10:35 5 mg QDAY PRN Administration CONSTIPATION Protocol Dextrose 25 ml 12/02/24 02:59 Dextrose 50%-Water Inj 50 Ml Syringe IV 01/01/25 02:58 Q15MIN PRN BG 50-70 responsive npo pt Dextrose 50 ml 12/02/24 02:59 Dextrose 50%-Water Inj 50 Ml Syringe IV 01/01/25 02:58 Q15MIN PRN BG <50 OR BG <70 & pt unresponsive Glucagon 1 mg 12/02/24 02:59 Glucagon Inj 1 Mg Vial IM Q15MIN PRN BG <70, and no IV access Hydrochlorothiazide 12.5 mg 12/02/24 09:00 12/03/24 09:10 Hydrochlorothiazide 12.5 Mg Capsule PO 01/01/25 08:59 Not Given QDAY CATALINA Piperacillin/Tazobactam/Dextrose 3.375 gm in 50 mls @ 12.5 mls/hr 12/02/24 06:00 12/03/24 13:57 Zosyn IV 12/09/24 05:59 12.5 mls/hr Q8HR [place]INA Administration Protocol Vancomycin/Sodium Chloride 200 mls @ 120 mls/hr 12/03/24 10:00 12/03/24 12:26 Vancomycin/Ns 1 Gm Ivpb IV 12/10/24 09:59 Infused Q12H CATALINA Infusion Protocol Insulin Glargine 30 unit 12/02/24 21:00 12/02/24 20:48 Insulin Glargine (Lantus) 5 Unit/0.05 Ml (Per 5 Units) SC 01/01/25 20:59 30 unit HS CATALINA Administration Insulin Human Lispro 0 unit 12/02/24 21:00 12/03/24 17:10 Insulin Lispro (Admelog) 1 Unit/0.01 Ml Unit SC 01/01/25 20:59 1 unit ACHS CATALINA Administration Protocol Lisinopril 2.5 mg 12/02/24 09:00 12/03/24 09:10 Lisinopril 2.5 Mg Tablet PO 01/01/25 08:59 Not Given QDAY [place] Morphine Sulfate 1 mg 12/02/24 02:59 12/02/24 03:16 Morphine Sulf Inj 10 Mg/Ml Vial IVP 12/07/24 02:58 1 mg Q2H PRN Administration PAIN SCALE 7-10 (Severe Ondansetron HCl 4 mg 12/02/24 02:59 12/02/24 03:16 Ondansetron Inj 2 Mg/Ml Inj 2 Ml IVP 01/01/25 02:58 4 mg Q6H PRN Administration NAUSEA OR VOMITING Protocol Pharmacy Consult 1 each 12/02/24 09:00 Vancomycin Pharmacy To Dose 1 Each Each IV 01/01/25 08:59 QDAY PRN CONSULT Plan Zuleika Aguilar is 59-year-old female with past medical history hypertension, hyperlipidemia, and DM2 was admitted to the hospital 12/02/2024 for surgical site infection. She recently had repair of incarcerated hernia completed on 11/14/[address] Torres. There were no major complications during the surgery. She however is endorsing worsening abdominal pain. Will admit for pain management, IV antibiotics and evaluation of surgical site. #Possible surgical site infection following abdominal surgery #s/p repair of incarcerated parenteral hernia and umbilical hernia Patient came in with complaints of abdominal pain since she had surgery on 11/17/2024 which has been increasing and today became unbearable along with fevers. In ED temp 101.1, WBC 16. Inflammatory markers and lactic acids are negative. Abdomen/pelvis CT showed on preliminary report fluid collection in the anterior abdomen as well as small amount of complex free fluid in the pelvis and right lower lung nodule. -encourage oral intake -IV Zosyn 3.375g TID (12/02- -IV Vancomycin (12/02- ? [place] 5 PO q4hr PRN ?dc IV Dilaudid 0.25 mg q4hr PRN (for breakthrough pain) ?IV morphine 1 mg q2hr PRN -General surgery consulted, appreciate recommendations--after evaluation, stated that there will be no need for surgery ? Blood cultures are pending #Insulin dependent type 2 diabetes On admission initial glucose 210. A1c on this admission 6.4, no previous numbers. Patient takes Farxiga 5 mg daily, 40 units of glargine HS, 1000 mg metformin for diabetes at home. -Held home medications -Bedside blood glucose checks ACHS -Insulin lispro sliding scale -Carb consistent low diet #Hypertension #Hyperlipidemia ?Resumed hydrochlorothiazide 12.5 mg daily ? Resumed lisinopril 2.5 mg daily #Pulmonary nodule As evidenced on CT scan chest. 13 mm nodule in right lower lobe. ?Follow-up outpatient for repeat imaging Disposition: med surg for possible surgical site infection Diet: low carb DVT prophylaxis: SCDs in setting of possible surgery Code: Full The patient's management plan was discussed with my attending physician Dr. Ma. Vernell Ga, PGY-1 Attending Provider Attestation/Addendum I have examined the patient, reviewed labs and imaging findings, discussed the case with the resident(s), and reviewed entered orders. I agree with the plan of care as outlined in this note, with these additional summaries/recommendations: Patient seen at bedside. No acute overnight events. She reports improvement in her appetite and abdominal pain. Patient underwent surgical repair of incarcerated ventral hernia and umbilical hernia on 11/17/2024. On admission patient was found to have leukocytosis 16.4. CT of abdomen/pelvis revealed poorly defined fluid collection in the lower anterior abdomen and mild free fluid in the pelvis. Patient diagnosed with surgical site infection. Unclear if patient has abscess at this time and may just be postoperative fluid changes. General surgery Dr. Torres consulted and likely not a abscess and no surgical intervention needed at this time. Continue broad-spectrum IV antibiotics. Blood cultures show no growth at 24 hours. Continue pain management. Continue basal and bolus insulin for diabetes mellitus type 2. Target blood sugar of 140-180 while hospitalized. Continue home antihypertensives and diabetic diet. Patient updated on the plan and in agreement. All questions answered to satisfaction. Please see residents note for additional details and management. Dr. Anil MD
[2024-12-03] MEDS: INSULIN GLARGINE (Lantus) 5 UNIT/0.05 ML (PER 5 UNITS) 30 UNIT SC (20:35)
--- NOTE | 2024-12-03 21:23 | PD.SURCONS ---
HPI Consult details Reason for consultation narrative: Postsurgical incisional pain History of present illness: A 59-year-old female had a large incarcerated incisional hernia repair done with an implantation of a patch about 10 days ago. She complained of abdominal incisional pain as the pain medication was ran out. She went to the emergency room and she was admitted after the CAT scan was done that showed a small amount of fluid in the incision. Patient has been constipated because of taking narcotic pain medications. She is being evaluated for further management. Patient has been placed on IV antibiotics because of high white cell count. Past Medical History Past Medical History NEUROLOGIC: Negative Neurological Disorders or Seizures CARDIAC: Positive Cardiac Disorders, Hypercholesterolemia and Hypertension; Negative Congestive Heart Failure RESPIRATORY: Negative Chronic Obstructive Pulmonary Disease (COPD) or Asthma GASTROINTESTINAL: Negative Gastrointestinal Disorders or Hepatitis GENITOURINARY: Positive Genitourinary Disorders and Kidney Stones; Negative Renal Disease REPRODUCTIVE: Positive Previous Pregnancies MUSCULOSKELETAL: Positive Musculoskeletal Disorders and Arthritis ENDOCRINE: Positive Endocrine Disorders and Diabetes Mellitus Type 2; Negative Diabetes Mellitus Type 1 HEMATOLOGIC: Negative Blood Disorders or Sickle Cell Disease OTHER HISTORY: Positive Hospitalization, Shingles and Cancer; Negative Autoimmune Disease, Blood Transfusions, Blood Transfusion Reaction or Anesthesia Reactions Family History FAMILY HISTORY: Positive Family Cardiac Disorders and Family Surgery; Negative Family Psychiatric Problems, Family Respiratory Disorders, Family Gastrointestinal Problems, Family Cancer or Family Anesthesia Reaction Surgical History SURGICAL: Positive Nose Surgery, Abdominal Surgery, Hysterectomy and Section Social History SMOKING STATUS: Never smoker Meds Home Medications and Allergies Home Medications ?Medication ?Instructions ?Recorded ?Confirmed ?Type atorvastatin 20 mg tablet 20 mg PO DAILY 11/14/24 12/02/24 History dapagliflozin propanediol 5 mg 5 mg PO QAM 11/14/24 12/02/24 History tablet (Farxiga) hydrochlorothiazide 12.5 mg capsule 12.5 mg PO DAILY 11/14/24 12/02/24 History insulin glargine 100 unit/mL (3 40 unit subcut QPM 11/14/24 12/02/24 History mL) subcutaneous pen (Basaglar KwikPen U-100 Insulin) lisinopril 2.5 mg tablet 2.5 mg PO DAILY 11/14/24 12/02/24 History metformin 1,000 mg tablet 1,000 mg PO DAILY 11/14/24 12/02/24 History semaglutide 2 mg/dose (8 mg/3 mL) 2 mg subcut QWEEK 11/14/24 12/02/24 History subcutaneous pen injector (Ozempic) Held on 12/02/24. Instructions: Doctor's Order Allergies Allergy/AdvReac Type Severity Reaction Status Date / Time No Known Allergies Allergy Verified 12/01/24 22:44 Exam Vital Signs Temp Pulse Resp BP Pulse Ox O2 Del Method 98.0 F 65 16 138/77 H 99 Room Air 12/03/24 19:55 12/03/24 20:06 12/03/24 20:06 12/03/24 19:55 12/03/24 19:55 12/03/24 19:55 Narrative Exam Patient is comfortable in the bed. The abdomen is soft and nondistended the incision is examined and shows that there is no hyperemia there is no drainage there is no edema there is a mild incisional tenderness because of the recent previous surgery. I have reviewed the CAT scan of the abdomen and that does not suggest any collection of fluid requiring any surgical drainage. She does have small amount of fluid seen on the CT scan which is less than a centimeter and there is some mild healing reactive changes underneath the skin incision. Otherwise abdomen is unremarkable. Patient's lungs are clear. Results Results: Laboratory Laboratory results: results reviewed Assessment & Plan Additional Assessment Additional comments: This is a diabetic patient and she has elevated white cell count there is no evidence of wound infection that requires any type of attention surgically. She is constipated and requires laxatives. Her blood sugar appears to be somewhat elevated requires tighter control of the blood sugar. Otherwise patient condition is quite good. Plan Suggest continuation of the IV antibiotics ambulate the patient and discharged home on oral pain medication and oral antibiotics. After discharge have the patient follow-up in my office in 2 weeks. Thank you for involving me in the evaluation and management of this patient.
[2024-12-04] VITALS: BP 130/72; PULSE 53; RESP 18; TEMP 36.4; O2SAT 97
[2024-12-04] MEDS: HYDROcodone/APAP 5/325 TABLET 1 TAB PO ×2 (00:12→09:43)
[2024-12-04 04:00] VITALS: BP 118/59; PULSE 52; RESP 15; TEMP 36.2; O2SAT 99
[2024-12-04] MEDS: PIPER/TAZO 3.375 GM PREMIX 3.375 GM/50 ML BAG IV (05:34)
[2024-12-04 06:55] LABS: Alanine Aminotransferase 22 U/L (10-49); Albumin, Serum 3.8 gm/dL (3.5-5.0); Albumin/Globulin Ratio 1.8 (1.2-2.2); Alkaline Phosphatase 61 U/L (46-116); Anion Gap 9 (7-16); Aspartate Amino Transferase 18 U/L (0-34); BUN/Creatinine Ratio 15 Ratio (12-20); Bilirubin,Total 0.5 mg/dL (0.3-1.2); Blood Urea Nitrogen 9 mg/dL (9-23); Calcium 8.9 mg/dL (8.3-10.6); Calcium (Corrected) 9.1 mg/dL (8.5-10.1); Carbon Dioxide 26.7 mMol/L (20.0-31.0); Chloride 108 mMol/L (98-107); Creatinine (Component) 0.6 mg/dL (0.6-1.3); Estimated Creatinine Clearance 86.9 mL/min (>60); Globulin 2.1 gm/dL (2.3-3.5); Glucose 144 mg/dL (74-106); Magnesium 1.9 mg/dL (1.6-2.6); Osmolality,Calculated 288 (275-295); Potassium 4.4 mMol/L (3.4-5.1); Sodium 144 mMol/L (136-145); Total Protein 5.9 gm/dL (5.7-8.2); eGFR > 60 See Note
[2024-12-04 07:13] LABS: Basophils # (Auto) 0.1 Thou/mm3 (0.0-0.2); Basophils % (Auto) 1 % (0-2.5); Eosinophils # (Auto) 0.3 Thou/mm3 (0.0-0.5); Eosinophils % (Auto) 4 % (0-10); Hematocrit 36.7 % (36.0-46.0); Hemoglobin 13.2 g/dL (12.0-16.0); Immature Granulocytes % (Auto) 0 % (0-0); Immature Granulocytes Auto 0.03 Thou/mm3 (0.00-0.00); Lymphocytes # (Auto) 2.3 Thou/mm3 (1.0-4.8); Lymphocytes % (Auto) 29 % (10-50); Mean Corpuscular Hemoglobin 32.8 pg (25.0-35.0); Mean Corpuscular Volume 91 fL (80-100); Monocytes # (Auto) 0.5 Thou/mm3 (0.0-0.8); Monocytes % (Auto) 7 % (0-12); Neutrophils # (Auto) 4.6 Thou/mm3 (1.8-7.7); Neutrophils % (Auto) 59 % (37-80); Nucleated Red Blood Cell % 0 /100 WBC (0); Platelet Count 133 Thou/mm3 (140-440); RDW Standard Deviation 41.5 fL (36.4-46.3); Red Blood Count 4.02 Miln/mm3 (4.00-5.20); White Blood Count 7.8 Thou/mm3 (3.6-11.0)
[2024-12-04 08:00] VITALS: BP 142/68; PULSE 53; RESP 18; TEMP 36.2; O2SAT 99
[2024-12-04 08:58] VITALS: BP 142/68; PULSE 53
[2024-12-04] MEDS: hydroCHLOROthiazide 12.5 MG CAPSULE PO (08:58)
[2024-12-04] MEDS: Lisinopril 2.5 MG TABLET PO (08:58)
[2024-12-04] MEDS: VANCOMYCIN/NS 1 GM IVPB 200 ML IV (09:44)
--- NOTE | 2024-12-04 10:12 | PD.RESDS ---
Planned Discharge Date 12/04/24 DS: Providers Provider Date of admission: 12/02/24 02:59 Primary care physician: Physician No Primary/Family Admitting Provider: Neil Reid MD Attending Provider on Admission: Jarrett aM MD Consults: 12/02/24 01:49 Consult to General Surgery Stat Comment: Post surgery abscess Consulting Provider: Jayson Torres 12/04/24 07:28 Referral Physical Therapy Stat Comment: Physician Instructions: Instructions: please ambulate the patient , pending a discharge.. thank you Attending Provider on DC: Jarrett Ma MD Discharging Provider: Jarrett Ma MD DS: Diagnosis Problem List Completed Was Problem List Reviewed/Reconciled?: Yes Hospital Course Hospital Course Hospital course: 59-year-old female with past medical history hypertension, hyperlipidemia, and DM2 was admitted to the hospital 12/02/2024 after coming to the ED with complaints of abdominal pain at surgical incision site. She had repair of incarcerated parenteral hernia and umbilical hernia on 11/14/[address] Torres. On presentation noted to be febrile, have leukocytosis and CT abdomen/pelvis did show small amount of fluid at site. Dr. Torres was was consulted and recommended to start patient on pain management and antibiotics. Stated that the amount of fluid collection did not require surgical drainage. Exam of wound showed no evidence of infection. No significant erythema, drainage, or bleeding. Patient was able to ambulate and pain was improved. She was started on laxatives due to difficulty in straining for bowel movement. Leukocytosis improved and she remained afebrile. During hospitalization, patient was very anxious and emotional. She was reassured and encouraged to continue ambulation daily with pain management at home. She should follow-up with Dr. Torres outpatient in 1 to 2 weeks. Patient is now in stable condition and ready for discharge. Recommendations were given as below. Discharge Recommendations: Continue previous medications. Finish taking antibiotic Amoxicllin-clavulanate as prescribed for 1 weeks. Take pain medication 1 tablet every 4hrs as needed for pain. Do not take more than 6 tablets in 24hrs. Try to start physical activity slowly. Take Docusate 1 tablet daily as needed for treatment of constipation. Follow up with Dr. Torres in 1-2 weeks. Follow up with PCP about lung nodule for repeat imaging in 6 months to monitor. Hospital Diagnoses: #Possible surgical site infection following abdominal surgery #s/p repair of incarcerated parenteral hernia and umbilical hernia #Insulin dependent type 2 diabetes #Hypertension #Hyperlipidemia #Pulmonary nodule The patient's management plan was discussed with my attending physician Dr. Ma. Vernell Ga MD, PGY-1 Time Spent with Patient Time attestation: Total time spent providing and/or coordinating discharge services: Time spent: Greater than 30 minutes Exam Vital Signs Temp Pulse Resp BP Pulse Ox O2 Del Method 97.1 F 53 L 18 142/68 H 99 Room Air 12/04/24 08:00 12/04/24 08:58 12/04/24 08:00 12/04/24 08:58 12/04/24 08:00 12/04/24 08:00 Narrative Exam General: Middle age female, mild distress from pain, cooperative but emotional HEENT: NCAT, No JVD noted. Mucosa moist. Pupils are equal and reactive to light bilaterally Cardiovascular: Normal S1 and S2. Regular rate and rhythm. Respiratory: Lungs are clear to auscultation bilaterally. No wheezing or crackles heard. Abdomen: Soft, tender around surgery site, no drainage, not distended, normal bowel sounds. Surgical site appears intact, no bleeding, no drainage, no erythema. Some tenderness to touch. Skin: Warm to touch, dry, no rashes noted Musculoskeletal: No gross injuries. Able to move all 4 extremities. No pitting edema Neuro: Alert and oriented x3. No focal neuro deficits. Psych: anxious, worries, emotional Discharge Plan Plan Patient Disposition: HOME (Self Care) Patient condition on transfer: Stable Prescriptions/Referrals Prescriptions/Med Rec: New amoxicillin-pot clavulanate 500-125 mg tablet 1 tab PO BID Qty: 10 0RF oxycodone-acetaminophen 5-325 mg tablet 1 tab PO Q4H MDD 6 tablets PRN (Reason: pain) 7 Days Qty: 28 0RF bisacodyl 5 mg Tablet,Delayed Release (Dr/Ec) 5 mg PO QDAY PRN (Reason: Constipation) 30 Days Qty: 30 0RF Continued dapagliflozin propanediol [Farxiga] 5 mg tablet 5 mg PO QAM metformin 1,000 mg tablet 1,000 mg PO DAILY Patient Comments: TAKE 1 TABLET BY MOUTH ONCE DAILY Ozempic 2 mg/dose (8 mg/3 mL) pen injector 2 mg subcut QWEEK hydrochlorothiazide 12.5 mg capsule 12.5 mg PO DAILY Patient Comments: TAKE 1 CAPSULE BY MOUTH ONCE DAILY lisinopril 2.5 mg tablet 2.5 mg PO DAILY Patient Comments: TAKE 1 TABLET BY MOUTH ONCE DAILY insulin glargine [Basaglar KwikPen U-100 Insulin] 100 unit/mL (3 mL) insulin pen 40 unit subcut QPM atorvastatin 20 mg tablet 20 mg PO DAILY ondansetron 8 mg tablet,disintegrating 8 mg PO Q8H PRN (Reason: nausea and vomiting) Qty: 20 0RF Referrals: No Primary/Family,Physician [Primary Care Provider] - Jayson Torres MD [Physician] - Patient/Caregiver Discharge Instructions Other Discharge Activity Instructions:: Continue previous medications. Finish taking antibiotic Amoxicllin-clavulanate as prescribed for 1 weeks. Take pain medication 1 tablet every 4hrs as needed for pain. Do not take more than 6 tablets in 24hrs. Try to start physical activity slowly. Take Docusate 1 tablet daily as needed for treatment of constipation. Follow up with Dr. Torres in 1-2 weeks. Follow up with PCP about lung nodule for repeat imaging in 6 months to monitor. Education Materials: Managing Post-Op Pain at Home, ED Post Op Wound Check, Infection Print Language: Malawian Stand Alone Forms: Vanita Award Info., Patient Portal Info Letter Discharge Order Discharge Orders: Discharge (Routine); Ordered 12/04/24 Ordered By: Vernell Ga Quality Discharge Quality Measures VTE prophylaxis Attestestation MD Attestation I have examined the patient, reviewed labs and imaging findings, discussed the case with the resident(s), and reviewed entered orders. I agree with the plan of care as outlined in this note. Time Spent: [address] Anil MD
--- NOTE | 2024-12-04 11:06 | PC.PT ---
Patient was approached at 1100. Patient states she has been ambulating to the restroom with S only with staff or her daughter. Her family can assist her at home. Dr. Ma made aware. Will cancel PT evaluation.
[2024-12-04] MEDS: INSULIN LISPRO (AdmeLOG) 1 UNIT/0.01 ML UNIT SC (11:28)
[2024-12-04 12:00] VITALS: BP 141/65; PULSE 55; RESP 18; TEMP 36.6; O2SAT 98
== END 2024-12-04 13:49 | disposition home or self-care (01) | DRG 721 ==
LOC: SERX 12-02 02:16 → SERHOLD 12-02 03:54 → S3SX 12-02 04:34
PROVIDERS: Admitting Provider Student in an Organized Health Care Education/Training Program; Emergency Provider Emergency Medicine; Visit Provider Student in an Organized Health Care Education/Training Program
DX: T81.41XA Infection following a procedure, superficial incisional surgical site, initial encounter (principal); E11.9 Type 2 diabetes mellitus without complications; I10 Essential (primary) hypertension; R91.1 Solitary pulmonary nodule; E78.5 Hyperlipidemia, unspecified; L02.211 Cutaneous abscess of abdominal wall; Z90.710 Acquired absence of both cervix and uterus; K59.00 Constipation, unspecified; Z79.4 Long term (current) use of insulin; Z79.84 Long term (current) use of oral hypoglycemic drugs; Z79.899 Other long term (current) drug therapy; Z90.49 Acquired absence of other specified parts of digestive tract; K59.03 Drug induced constipation; T40.695A Adverse effect of other narcotics, initial encounter
CPT/HCPCS: 36415; 71045; 74177; 80053; 80061; 80202; 81001; 82150; 82248; 83036; 83605; 83690; 83735; 84145; 85025; 85610; 85652; 85730; 86140; 87040; 87081; 96365; 96367; 96375; 96376; 99285; A4649; J0131; J1171; J1815; J1885; J2270; J2405; J2543; J2919; J3370; J3475; J7030; Q9967; A9270

== ENCOUNTER 2025-06-10 07:41 | Emergency (ER) | payer MEDICAID, SELFPAY ==
[2025-06-10 07:42] VITALS: BMI 27.3
[2025-06-10 07:49] VITALS: BP 141/84; PULSE 77; RESP 17; TEMP 36.6; O2SAT 98; BMI 27.0
--- NOTE | 2025-06-10 07:56 | PD.EDABDPN ---
ED Abdominal Pain RME/HPI General Chief Complaint: Abdominal Pain Stated complaint: LOWER ABD PAIN S/P HERNIA SURGERY Time seen by provider: 06/10/25 07:43 Arrival date/time: 06/10/25 07:41 RME / HPI RME / HPI narrative: See [facility] for Dr. Hoang's HPI documentation. Related Data Home Medications ?Medication ?Instructions ?Recorded ?Confirmed atorvastatin 20 mg tablet 20 mg PO DAILY 11/14/24 12/02/24 dapagliflozin propanediol 5 mg 5 mg PO QAM 11/14/24 12/02/24 tablet (Farxiga) hydrochlorothiazide 12.5 mg capsule 12.5 mg PO DAILY 11/14/24 12/02/24 insulin glargine 100 unit/mL (3 40 unit subcut QPM 11/14/24 12/02/24 mL) subcutaneous pen (Basaglar KwikPen U-100 Insulin) lisinopril 2.5 mg tablet 2.5 mg PO DAILY 11/14/24 12/02/24 metformin 1,000 mg tablet 1,000 mg PO DAILY 11/14/24 12/02/24 semaglutide 2 mg/dose (8 mg/3 mL) 2 mg subcut QWEEK 11/14/24 12/02/24 subcutaneous pen injector (Ozempic) Previous Rx's ?Medication ?Instructions ?Recorded ondansetron 8 mg disintegrating 8 mg PO Q8H PRN nausea and 11/18/24 tablet vomiting #20 tabs amoxicillin 500 mg-potassium 1 tab PO BID #10 tabs 12/04/24 clavulanate 125 mg tablet bisacodyl 5 mg tablet,delayed 5 mg PO QDAY PRN constipation #20 06/10/25 release (Dulcolax (bisacodyl)) tabs cefdinir 300 mg capsule 300 mg PO BID #14 caps 06/10/25 peg 3350-electrolytes 236 240 ml PO Q10M #4,000 mL 06/10/25 gram-22.74 gram-6.74 gram-5.86 gram solution (Golytely) Allergies Allergy/AdvReac Type Severity Reaction Status Date / Time No Known Allergies Allergy Verified 06/10/25 07:45 Review of Systems Review of Systems Systems Reviewed: All systems reviewed, normal except as documented Past Medical History Past Medical History CARDIAC: Positive Cardiac Disorders, Hypercholesterolemia and Hypertension GASTROINTESTINAL: Positive Gastrointestinal Disorders (umbilical hernia repair november 2024) GENITOURINARY: Positive Genitourinary Disorders and Kidney Stones REPRODUCTIVE: Positive Previous Pregnancies MUSCULOSKELETAL: Positive Musculoskeletal Disorders and Arthritis ENDOCRINE: Positive Endocrine Disorders and Diabetes Mellitus Type 2 (takes forciga) OTHER HISTORY: Positive Hospitalization, Shingles and Cancer Family History FAMILY HISTORY: Positive Family Cardiac Disorders and Family Surgery Surgical History SURGICAL: Positive Nose Surgery, Abdominal Surgery, Hysterectomy and Section Social History SMOKING STATUS: Never smoker ED Exam Narrative Physical exam: See MDM for Dr. Hoang's physical exam documentation. Course Quality Measures none Orders Category Date Time Status CT Screening NOW Care 06/10/25 07:59 Completed Saline [Insert IV] NOW Care 06/10/25 07:[address] abdomen pelvis w con Stat Exams 06/10/25 07:59 Completed US abdomen limited Stat Exams 06/10/25 07:59 Completed US pelvic complete Stat Exams 06/10/25 07:59 Completed Amylase Stat Lab 06/10/25 08:30 Completed Bilirubin,Direct Stat Lab 06/10/25 08:30 Completed CBC Stat Lab 06/10/25 08:30 Completed CMP [Comprehensive Metabolic Panel] Stat Lab 06/10/25 08:30 Completed Hemoglobin A1C [Glycohemoglobin w (eAG)] Stat Lab 06/10/25 08:30 Completed Lipase Stat Lab 06/10/25 08:30 Completed Magnesium Stat Lab 06/10/25 08:30 Completed TSH [Thyroid Stimulating Hormone] Stat Lab 06/10/25 08:30 Completed UA, C/S IF [Urinalysis, C/S if Indicated] Stat Lab 06/10/25 08:30 Completed Urine Culture Stat Lab 06/10/25 08:30 Received Morphine* Inj Med 06/10/25 07:58 Discontinued 2 mg IV X1 ONE Ondansetron Inj [Zofran Inj] Med 06/10/25 07:58 Discontinued 4 mg IVP X1 ONE Ringers Lactated 1000 ml [Lactated Ringers] 1,000 ml Med 06/10/25 07:58 Discontinued IV 500 mls/hr Vital Signs Vital signs: Vital Signs Temperature 97.9 F 06/10/25 07:49 Pulse Rate 77 06/10/25 07:49 Respiratory Rate 17 06/10/25 07:49 Blood Pressure 141/84 H 06/10/25 07:49 Pulse Oximetry (%) 98 06/10/25 07:49 Oxygen Delivery Method Room Air 06/10/25 07:49 Pulse ox is 98% on room air which is adequate. Abdominal Pain MDM MDM Narrative MDM Narrative:: This section includes all my notes and documentations, including HPI, PE, and ED course. Evaristo Hoang MD HPI: 59-year-old female here with abdominal pain since last night. Ever since she had hernia surgery 6 months ago, she reports chronic abdominal pain. No other complaints. ROS: All negative except as documented in HPI. Physical Exam: General: Alert and oriented. No acute distress when remaining still. Eyes: Conjunctivae and lids clear. ENT: No nasal congestion. Neck: Supple. Heart: RRR. Lungs: No respiratory distress. Good air movement. No rhonchi, wheezing, rales. Abdomen: Soft with equivocal tenderness, difficult to localize. Normal bowel sounds. No distension. No rebound or guarding. Back: No CVA tenderness. Skin: Warm and dry. Neuro: Alert and oriented X 3. I reviewed all diagnostic test results: My review of the pelvis ultrasound report is NAD. My review of the abdomen/pelvis CT report is obstipation. My review of the abdomen ultrasound report is NAD. Blood tests are unremarkable. UA showed leukocyte esterase, and 20 WBC. At this point, diagnoses include: Constipation UTI Treatment here included: IVF Morphine 2 mg IV Zofran 4 mg IV She felt better. 11:25- I spoke with GI (Dr. Hernandez). About the presentation and exam and diagnostics and treatments here. And possible need of further care in the hospital. He recommended outpatient treatment with GoLYTELY. Based on my best medical judgment, made decision no further evaluation or treatment indicated at this time. Patient understands and agrees to the discharge instructions customized and printed, see below. Discharge instructions from Dr. Hoang printed for you: -- After extensive evaluation, there is no emergency.? Such as appendicitis needing urgent surgery. -- You have severe constipation. -- Clear liquid diet today. Take GoLYTELY as prescribed. One cup every 15-30 minutes until finished. Two Dulcolax pills before starting GoLYTELY. Two Dulcolax pills middle of GoLYTELY. Two Dulcolax pills after finishing GoLYTELY. -- Tomorrow, regular diet as tolerated. -- To help current constipation and prevent future constipation, increase oral fluid because dehydration cause severe constipation.? Maintain clear urine.? If dark or yellow, increase oral fluid. -- And every day, increase fresh fruits and fresh vegetables and physical exercise. -- For UTI, take cefdinir as prescribed. -- See a private doctor on 06/12/2025. To make sure there is no serious underlying abdominal condition, ask to help you get more care not available here in the ER.? Such as EGD or scoping of your stomach, colonoscopy or scoping the colon, and a referral to see a textile clothing and footwear mechanic. Ask to check the final urine culture results from today. -- Seek immediate medical care with worsening or with any concerns. Evaristo Hoang MD Patient data External records reviewed:: [facility] previous records Clinical information provided by:: patient Social determinants that could affect healthcare access:: none Patient has the following chronic illnesses:: hypertension, diabetes, hyperlipidemia How is presenting disease/condition affected by chronic disease/condition?: exacerbated by Evaluation data The following diagnostics were reviewed and interpreted by me:: lab results and radiology exam(s) Lab and/or radiology exams considered but not ordered:: none Interpretation Summary: I reviewed all diagnostic test results: My review of the pelvis ultrasound report is NAD. My review of the abdomen/pelvis CT report is obstipation. My review of the abdomen ultrasound report is NAD. Blood tests are unremarkable. UA showed leukocyte esterase, and 20 WBC. Medications / Prescriptions Medications or Prescriptions considered but not ordered:: None Medication administrations:: Medication Administration History Discontinued Medications Lactated Ringer's (Lactated Ringers) 1,000 mls @ 500 mls/hr IV .Q2H ONE Stop: 06/10/25 09:57 Last Admin: 06/10/25 08:59 Dose: 500 mls/hr Documented By: COURTNEY Morphine Sulfate (Morphine Sulf Inj 4 Mg/Ml Vial) 2 mg IV X1 ONE Stop: 06/10/25 07:59 Last Admin: 06/10/25 08:59 Dose: 2 mg Documented By: [facility] Ondansetron HCl (Ondansetron Inj 2 Mg/Ml Inj 2 Ml) 4 mg IVP X1 ONE; Protocol Stop: 06/10/25 07:59 Last Admin: 06/10/25 08:59 Dose: 4 mg Documented By: COURTNEY Treatment here included: IVF Morphine 2 mg IV Zofran 4 mg IV Consultations Consultation(s) initiated? (list below): Yes Consultation #1 (Physician, Specialty, Details): 11:25- I spoke with GI (Dr. Hernandez). About the presentation and exam and diagnostics and treatments here. And possible need of further care in the hospital. He recommended outpatient treatment with GoLYTELY. Diagnosis Differential diagnosis abdominal pain: acute appendicitis, calculus of kidney, constipation, diverticulitis, endometriosis, gastroenteritis, pancreatitis and small bowel obstruction Most likely diagnosis given after review of the tests above:: At this point, diagnoses include: Constipation UTI Admission Indicated Admission indicated?: not indicated Explain why admission is indicated or not indicated:: With significant improvement and no condition needing emergent intervention, there was no indication for admission. Admission Request Was there a request for admission?: No Disposition Plan Disposition Plan: Discharge Discharge Attestation Discharge Attestation: The patient and all family members were given an opportunity to ask questions and understood the discharge instructions. Discharge instructions specifically effects, indications for sooner follow up or return to the emergency department, and the expected course of current diagnosis. Patient condition: Stable Discharge Plan Plan Patient Disposition: HOME (Self Care) Prescriptions/Referrals Prescriptions/Med Rec: New cefdinir 300 mg capsule 300 mg PO BID Qty: 14 0RF peg 3350-electrolytes [Golytely] 236-22.74-6.74 -5.86 gram recon soln 240 ml PO Q10M Qty: 4000 0RF Rx Instructions: until fecal effluent is clear bisacodyl [Dulcolax (bisacodyl)] 5 mg tablet,delayed release (DR/EC) 5 mg PO QDAY PRN (Reason: constipation) Qty: 20 0RF No Action dapagliflozin propanediol [Farxiga] 5 mg tablet 5 mg PO QAM metformin 1,000 mg tablet 1,000 mg PO DAILY Patient Comments: TAKE 1 TABLET BY MOUTH ONCE DAILY Ozempic 2 mg/dose (8 mg/3 mL) pen injector 2 mg subcut QWEEK hydrochlorothiazide 12.5 mg capsule 12.5 mg PO DAILY Patient Comments: TAKE 1 CAPSULE BY MOUTH ONCE DAILY lisinopril 2.5 mg tablet 2.5 mg PO DAILY Patient Comments: TAKE 1 TABLET BY MOUTH ONCE DAILY insulin glargine [Basaglar KwikPen U-100 Insulin] 100 unit/mL (3 mL) insulin pen 40 unit subcut QPM atorvastatin 20 mg tablet 20 mg PO DAILY ondansetron 8 mg tablet,disintegrating 8 mg PO Q8H PRN (Reason: nausea and vomiting) Qty: 20 0RF amoxicillin-pot clavulanate 500-125 mg tablet 1 tab PO BID Qty: 10 0RF Referrals: Freddy Mcguire MD [Primary Care Provider] - In 1 week Problem List Clinical Impression: Constipation, UTI (urinary tract infection) Patient/Caregiver Discharge Instructions Discharge Activity: activity as tolerated Education Materials: ED Constipation (Adult), ED CYSTITIS Female Adult Additional Instructions: Discharge instructions from Dr. Hoang printed for you: -- After extensive evaluation, there is no emergency.? Such as appendicitis needing urgent surgery. -- You have severe constipation. -- Clear liquid diet today. Take GoLYTELY as prescribed. One cup every 15-30 minutes until finished. Two Dulcolax pills before starting GoLYTELY. Two Dulcolax pills middle of GoLYTELY. Two Dulcolax pills after finishing GoLYTELY. -- Tomorrow, regular diet as tolerated. -- To help current constipation and prevent future constipation, increase oral fluid because dehydration cause severe constipation.? Maintain clear urine.? If dark or yellow, increase oral fluid. -- And every day, increase fresh fruits and fresh vegetables and physical exercise. -- For UTI, take cefdinir as prescribed. -- See a private doctor on 06/12/2025. To make sure there is no serious underlying abdominal condition, ask to help you get more care not available here in the ER.? Such as EGD or scoping of your stomach, colonoscopy or scoping the colon, and a referral to see a textile clothing and footwear mechanic. Ask to check the final urine culture results from today. -- Seek immediate medical care with worsening or with any concerns. Print Language: Hong Konger Stand Alone Forms: Vanita Award Info., Patient Portal Info Letter
--- NOTE | 2025-06-10 07:59 | XR_ITS ---
Study: Abdomen pelvis CT. INDICATION: Right-sided abdomen pain for 1 day. TECHNIQUE: 3 mm slice thickness with 60 mL of Isovue-370 3 mm sagittal and coronal reformats. 3D surface reconstruction of the skeletal features with rotating presentation. 1636 images at 0953 hours 10 June 2025. FINDINGS: The patient was imaged from the base of the heart to the subtrochanteric regions. The heart is normal in size and contour. There is no significant pericardial effusion or coronary artery plaque. The lungs are free from segmental alveolar infiltrates. There is a pleural-based nodule in the lateral segment of the middle lobe measuring approximately 11 mm diameter. No calcification is noted. Margination is smoothly nodular. There is no pleural effusion. There is been a cholecystectomy. The kidneys, ureters and urinary bladder are free from calculi. There is no hydronephrosis, ascites or free abdominal air. Parenchyma of the liver, pancreas, spleen, kidneys, adrenal glands and periaortic lymph node region is normal. Note is made of a midline laparotomy scar extending superior from and inferior from the umbilicus. The stomach, duodenum, jejunum, appendix and colon are normal to the splenic flexure beyond which are intact diverticuli through the level of the sigmoid-rectal junction. Thickening is noted in the wall of the ileum throughout. The ileum is mildly distended by fluid content. There is no surrounding edema. The ascending colon is distended by foamy stool. Additional smaller amounts of foamy stool are noted in the convoluted sigmoid. The urinary bladder wall is thin. There are no contained masses. Gynecoid organs are surgically absent. Vertebral alignment is grossly normal. There is no loss of disc height, fracture or focal bone lesion. The aorta and inferior vena cava are normal in caliber. There is no significant aortic plaque burden. IMPRESSION: 1. Suspected ileum enteritis. 2. Obstipation.
--- NOTE | 2025-06-10 07:59 | XR_ITS ---
Study: Limited abdomen ultrasound. INDICATION: Right lower quadrant pain for 7 months. TECHNIQUE: Grayscale ultrasound with color flow Doppler. 40 images at 0824 hours 10 June 2025. Findings: The gallbladder is surgically absent. The common bile duct measures 0.7 cm. The liver measures 14.7 cm in the midclavicular line and is normal in echogenicity. There is no cyst, solid mass or ectatic duct. Portal vein flow is toward the liver. The head and a portion of the body of the pancreas are visible and normal in appearance. The aorta is normal in caliber. The inferior vena cava is patent. The right kidney measures approximately 10.3 cm in length. The corticomedullary junctions are well differentiated. There is no cyst, solid mass, stone or hydronephrosis. IMPRESSION: 1. No acute diagnostic abnormality.
--- NOTE | 2025-06-10 07:59 | XR_ITS ---
Study: Complete pelvic ultrasound. INDICATION: Right lower quadrant pain for 7 months. TECHNIQUE: 17 images by grayscale ultrasound with color flow Doppler at 0818 hours 10 June 2025. FINDINGS: The uterus is surgically absent. The ovaries, if present, are obscured by bowel gas. The cul-de-sac is dry. IMPRESSION: Examination markedly limited by patient pain and excessive bowel gas. No acute diagnostic abnormality. Consider follow-up with contrasted pelvic CT.
[2025-06-10 08:53] LABS: Collection Type, Urine Clean Catch
[2025-06-10 08:59] LABS: Basophils # (Auto) 0.0 Thou/mm3 (0.0-0.2); Basophils % (Auto) 0 % (0-2.5); Eosinophils # (Auto) 0.1 Thou/mm3 (0.0-0.5); Eosinophils % (Auto) 1 % (0-10); Hematocrit 41.9 % (36.0-46.0); Hemoglobin 14.3 g/dL (12.0-16.0); Immature Granulocytes Auto 0.03 Thou/mm3 (0.00-0.00); Lymphocytes # (Auto) 1.8 Thou/mm3 (1.0-4.8); Lymphocytes % (Auto) 18 % (10-50); Mean Corpuscular HGB Conc 34.1 g/dl (31.0-37.0); Mean Corpuscular Hemoglobin 32.4 pg (25.0-35.0); Mean Corpuscular Volume 95 fL (80-100); Monocytes # (Auto) 0.6 Thou/mm3 (0.0-0.8); Monocytes % (Auto) 6 % (0-12); Neutrophils # (Auto) 7.7 Thou/mm3 (1.8-7.7); Neutrophils % (Auto) 75 % (37-80); Nucleated Red Blood Cell # 0.00 Thou/mm3 (0.00-0.00); Nucleated Red Blood Cell % 0 /100 WBC (0); Platelet Count 123 Thou/mm3 (140-440); RDW Standard Deviation 42.3 fL (36.4-46.3); Red Blood Count 4.42 Miln/mm3 (4.00-5.20); White Blood Count 10.2 Thou/mm3 (3.6-11.0)
[2025-06-10] MEDS: ONDANSETRON INJ 2 MG/ML INJ 2 ML 4 MG IVP (08:59)
[2025-06-10] MEDS: MORPHINE SULF INJ 4 MG/ML VIAL 2 MG IV (08:59)
[2025-06-10] MEDS: RINGERS LACTATED 1000 ML 1,000 ML 500 ML IV (08:59)
[2025-06-10 09:17] LABS: Bilirubin,Urine Negative (Negative); Blood,Urine Trace-Intact (Negative); Clarity,Urine Clear (Clear/Hazy); Color,Urine Lt Yellow (Lt Yel-Yel); Glucose, Urine 3+ (Negative); Ketones,Urine Negative (Negative); Leukocyte Esterase,Urine 1+ (Negative); Nitrite,Urine Negative (Negative); PH,Urine 6.0 (5.0-7.0); Protein,Urine Negative (Neg - Trace); Specific Gravity,Urine 1.025 (1.001-1.035); Urobilinogen,Urine 0.2 mg/dL (0.0-1.0)
[2025-06-10 09:21] LABS: Culture Indicated,Urine Yes
[2025-06-10 09:22] LABS: Alanine Aminotransferase 32 U/L (10-49); Albumin, Serum 4.5 gm/dL (3.5-5.0); Albumin/Globulin Ratio 1.9 (1.2-2.2); Alkaline Phosphatase 65 U/L (46-116); Amylase 84 U/L (30-118); Anion Gap 7 (7-16); Aspartate Amino Transferase 21 U/L (0-34); BUN/Creatinine Ratio 28 Ratio (12-20); Bilirubin,Direct 0.2 mg/dL (0.0-0.3); Bilirubin,Total 0.6 mg/dL (0.3-1.2); Blood Urea Nitrogen 17 mg/dL (9-23); Calcium 9.3 mg/dL (8.3-10.6); Calcium (Corrected) 9.3 mg/dL (8.5-10.1); Carbon Dioxide 27.3 mMol/L (20.0-31.0); Chloride 110 mMol/L (98-107); Creatinine (Component) 0.6 mg/dL (0.6-1.3); Estimated Creatinine Clearance 89.9 mL/min (>60); Globulin 2.4 gm/dL (2.3-3.5); Glucose 135 mg/dL (74-106); Lipase 51 U/L (12-53); Magnesium 1.6 mg/dL (1.6-2.6); Osmolality,Calculated 290 (275-295); Potassium 3.9 mMol/L (3.4-5.1); Sodium 144 mMol/L (136-145); Thyroid Stimulating Hormone 2.69 uIU/mL (0.55-4.78); Total Protein 6.9 gm/dL (5.7-8.2); eGFR > 60 See Note
[2025-06-10 09:35] LABS: Squamous Epithelial Cell,Urine 4 /hpf (0-5); WBC,Urine 20 /hpf (0-5)
[2025-06-10 09:37] LABS: RBC,Urine 1 /hpf (0-3)
[2025-06-10 10:13] LABS: Glucose Estimated Average 131 mg/dL (80-131); Hemoglobin A1C 6.2 % Hgb (4.8-6.0)
[2025-06-10 11:04] VITALS: BP 131/79; PULSE 76; RESP 18; O2SAT 96
[2025-06-10 12:09] VITALS: BP 122/76; PULSE 76; RESP 16; TEMP 36.7; O2SAT 99
== END 2025-06-10 12:11 | disposition home or self-care (01) ==
PROVIDERS: Emergency Provider Emergency Medicine; PCP Internal Medicine
DX: N39.0 Urinary tract infection, site not specified (principal); K59.00 Constipation, unspecified; R10.31 Right lower quadrant pain
CPT/HCPCS: 36415; 74177; 76705; 76856; 80053; 81001; 82150; 82248; 83036; 83690; 83735; 84443; 85025; 87086; 96374; 99284; A4649; J2270; J2405; J7120; Q9967